=== PATIENT | female | born 1945 | race Caucasian/White ===

== ENCOUNTER 2022-02-19 08:47 | Observation (INO) ==
[2022-02-19] MEDS ORDERED: SODIUM CHLORIDE 0.9% 1000ML 1,000 ML IV ONE ×2 (08:57→16:17)
--- NOTE | 2022-02-19 09:36 | Emergency Department Note ---
Impression & Plan LGI bleed, Hypertension, Anemia ED Provider Note NAME: DEVIN HURST AGE: 76 SEX: F ARRIVES VIA: Walk-In INFORMANT: Patient ED PROVIDER(S): Archie Campos MD CHIEF COMPLAINT: Blood per rectum PLAN: Disposition: Admit MEDICAL DECISION MAKING: The patient is a pleasant 76-year-old woman with a past medical history of arthritis who presents to the emergency department for evaluation of acute onset red blood per rectum which she reports has been mostly blood and clots and minimal stool began this morning with several episodes in most recent episode occurred recently in the emergency department on arrival. She had any prior history of similar episodes. She denies any blood thinner use. She does take a baby aspirin daily. She reports she recently started taking Aleve for hip pain that occurred after lifting 40 pounds of mulch over the weekend. She denies any chest pain, shortness of breath, nausea, vomiting, abdominal pain or chest pain. On arrival patient is no distress, afebrile with BP 160-200s/90-100s in the setting of ongoing GI bleeding and otherwise stable vital signs. She appears clinically dry. Her abdomen is nontender. WBC and platelets within normal limits. H/H10.8/34, without prior values for comparison. Chemistry without metabolic acidosis. BUN/creatinine 20 consistent with patient's clinically dry appearance. Electrolytes LFTs unremarkable. Lipase not elevated. UA without convincing evidence of infection. COVID-19 RNA, NAAT test was negative. CT of the abdomen pelvis was performed and was negative for acute process. Diverticulosis is seen without evidence of diverticulitis. Given the patient's active hematochezia in the setting of anemia reasonable to proceed with admission for further management. Suspect possible diverticular bleed given the persistence of patient's symptoms. Type and screen was performed however given patient is hemodynamically stable no indication for transfusion at this time. Case was discussed with Dr. Janes SALMERON hospitalist, who will evaluate the patient for admission. Triage Nursing notes reviewed and agree them. Prior medical records reviewed Vital Signs: reviewed and remarkable for no significant abnormalities Differential diagnosis: Diverticulosis, AVM, coagulopathy, colitis, inflammatory bowel disease, malignancy, Jess-Juárez tear, esophagitis, peptic ulcer disease, variceal bleed, gastritis, epistaxis, fissure, hemorrhoids, as well as other pathologies. ER treatment provided: See below. Diagnostics interpreted by me: ECG: NSR, 65 bpm, no ectopy, LVH, Nonspecific TWA, no overt ST elevation or depression. Cardiac Monitoring: An order for continuous cardiac monitoring was placed and demonstrated NSR, 65 bpm, no ectopy. Laboratory studies: See below Imaging studies: See below Consultation(s): Dr. Janes SALMERON hospitalist. HPI: The patient is a pleasant 76-year-old woman with a past medical history of arthritis who presents to the emergency department for evaluation of acute onset red blood per rectum which she reports has been mostly blood and clots and minimal stool began this morning with several episodes in most recent episode occurred recently in the emergency department on arrival. She had any prior history of similar episodes. She denies any blood thinner use. She does take a baby aspirin daily. She reports she recently started taking Aleve for hip pain that occurred after lifting 40 pounds of mulch over the weekend. She denies any chest pain, shortness of breath, nausea, vomiting, abdominal pain or chest pain. ROS: See above HPI for pertinent positives & negatives. A total of 10 systems reviewed and were otherwise negative. VITALS:See Below PHYSICAL EXAMINATION: GENERAL: Awake, alert, well-appearing, in no distress HENT: Normocephalic, atraumatic. Oropharynx with dry mucous membranes and otherwise unremarkable. EYES: Normal conjunctiva. Sclera non-icteric. NECK: Supple. No nuchal rigidity. FROM. No JVD. RESPIRATORY: Clear to auscultation. CARDIAC: Regular rate, normal rhythm. Extremities warm and well perfused. Pulses equal. ABDOMEN: Soft, non-distended. No tenderness to palpation. No rebound or guarding. No masses. RECTAL: Deferred. MUSCULOSKELETAL: Chest examination reveals no tenderness. The back is symmetrical on inspection without obvious abnormality. There is no CVA tenderness to palpation. No joint edema. LOWER EXTREMITIES: Calves are equal size bilaterally and non-tender. No edema. No discoloration. NEURO: Normal sensorium. No sensory or motor deficits noted. SKIN: No rash or jaundice noted. 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 Beliefs That Will Affect Care: None Current Living Situation: Spouse Current Living Situation Comment: Lives a medium size trailor Other Information That Helps Us Care for You: No Feels Safe at Home: Yes Safety Concerns: Feels Safe At This Time Allergies Allergies Allergy/AdvReac Type Severity Reaction Status Date / Time thimerosal Allergy Severe Hives Verified 02/19/22 11:16 Home Meds Home Medications Medication Instructions Recorded Confirmed atenolol 25 mg tablet 25 mg PO BID 02/19/22 02/19/22 cetirizine 10 mg tablet (Zyrtec) 5 mg PO QPM 02/19/22 02/19/22 levothyroxine 50 mcg tablet 50 mcg PO QAM 02/19/22 02/19/22 montelukast 10 mg tablet 10 mg PO QAM 02/19/22 02/19/22 olmesartan 20 mg tablet 20 mg PO QPM 02/19/22 02/19/22 Results & Data (ED) Vital Signs Vital Signs - 24 hr 02/19/22 08:51 02/19/22 09:37 02/19/22 10:00 Temperature 36.1 C L Temperature Source Temporal Artery Scan Pulse Rate 60 55 L Pulse Rate [Apical] 56 L Pulse Rate from SpO2 Sensor Respiratory Rate 18 17 21 Blood Pressure 167/137 H Blood Pressure [Right Arm] 199/87 H Blood Pressure Mean 147 Blood Pressure Mean [Right Arm] 124 Pulse Oximetry 98 95 Oxygen Delivery Method Room Air Room Air Sepsis Recent Fever Within 48 Hours No Sepsis New/Unexplained Change in Mental Status No Sepsis Action Taken by Nursing No Action Required 02/19/22 10:01 02/19/22 11:10 02/19/22 11:30 Temperature Temperature Source Pulse Rate 53 L 57 L Pulse Rate [Apical] 55 L Pulse Rate from SpO2 Sensor 53 L 56 L Respiratory Rate 14 22 17 Blood Pressure 182/76 H Blood Pressure [Right Arm] 210/87 H Blood Pressure Mean 111 Blood Pressure Mean [Right Arm] 128 Pulse Oximetry 94 97 95 Oxygen Delivery Method Room Air Room Air Room Air Sepsis Recent Fever Within 48 Hours Sepsis New/Unexplained Change in Mental Status Sepsis Action Taken by Nursing 02/19/22 11:31 02/19/22 12:09 02/19/22 12:15 Temperature Temperature Source Pulse Rate 58 L Pulse Rate [Apical] Pulse Rate from SpO2 Sensor 59 L 55 L Respiratory Rate 23 Blood Pressure 207/97 H 204/97 H Blood Pressure [Right Arm] Blood Pressure Mean 133 132 Blood Pressure Mean [Right Arm] Pulse Oximetry 93 97 Oxygen Delivery Method Room Air Room Air Sepsis Recent Fever Within 48 Hours Sepsis New/Unexplained Change in Mental Status Sepsis Action Taken by Nursing Laboratory Data Attestation: I reviewed the patient's lab results. Result diagrams: 02/19/22 16:20 02/19/22 16:20 Lab Results 02/19/22 02/19/22 02/19/22 Range/Units 09:35 09:35 09:35 WBC 7.99 (4.8-10.8) K/uL RBC 3.80 L (4.2-5.4) M/uL Hgb 10.8 L (12.0-16.0) g/dL Hct 34.0 L (37-47) % MCV 89.5 (80-100) fL MCH 28.4 (25-34) pg MCHC 31.8 L (32-36) g/dL RDW Std Deviation 46.4 H (36.4-46.3) fL RDW Coeff of Naveed 14.1 (11.5-14.5) % Plt Count 361 (130-400) K/uL MPV 9.3 (7.4-10.4) fL Immature Gran % (Auto) 0.3 % Neut % (Auto) 71.3 % Lymph % (Auto) 17.1 % [place] % (Auto) 7.5 % Eos % (Auto) 3.3 % Baso % (Auto) 0.5 % Neut # (Auto) 5.70 (1.4-6.5) K/uL Lymph # (Auto) 1.37 (1.2-3.4) K/uL [place] # (Auto) 0.60 H (0.11-0.59) K/uL Eos # (Auto) 0.26 (0-0.5) K/uL Baso # (Auto) 0.04 (0-0.2) K/uL Immature Gran # (Auto) 0.02 (0.00-0.02) K/uL PT 10.7 (9.0-12.0) Seconds INR 1.0 (0.9-1.1) Sodium 133 L (136-145) mmol/L Potassium 4.3 (3.5-5.1) mmol/L Chloride 100 (98-107) mmol/L Carbon Dioxide 27 (21-32) mmol/L Anion Gap 6 (3-11) BUN 19 (6-23) mg/dl Creatinine 0.87 (0.6-1.2) mg/dl Est Cr Clr Drug Dosing 63.9 ml/min Est GFR ( Amer) 76.1 ml/min Est GFR (Non-Af Amer) 65.6 ml/min BUN/Creatinine Ratio 21.8 H (10-20) Glucose 92 (70-99(Fasting)) mg/dl Calcium 9.1 (8.5-10.1) mg/dl Total Bilirubin 0.4 (0.2-1.0) mg/dl AST 16 (13-39) U/L ALT 15 (7-52) U/L Alkaline Phosphatase 100 (34-104) U/L Total Protein 6.8 (6.0-8.3) gm/dl Albumin 3.7 (3.4-5.0) gm/dl Globulin 3.1 (2.5-4.0) gm/dl Albumin/Globulin Ratio 1.2 (0.9-2) Lipase 20 (11-82) U/L Urine Color Urine Appearance (Clear) Urine pH (4.5-7.5) Ur Specific [place] (1.000-1.030) Urine Protein (Negative) Urine Glucose (UA) (Negative) Urine Ketones (Negative) Urine Blood (Negative) Urine Nitrite (Negative) Urine Bilirubin (Negative) Urine Urobilinogen (Negative) Ur Leukocyte Esterase (Negative) Urine WBC (Auto) (0-5) /hpf Urine RBC (Auto) (0-4) /hpf U Hyaline Cast (Auto) (0-5) /lpf U Epithel Cells (Auto) (0-5) /lpf Urine Bacteria (Auto) (Negative) SARS-CoV-2, RNA, NAAT (NEGATIVE) Blood Type Antibody Screen 02/19/22 02/19/22 02/19/22 Range/Units 09:41 09:51 10:27 WBC (4.8-10.8) K/uL RBC (4.2-5.4) M/uL Hgb (12.0-16.0) g/dL Hct (37-47) % MCV (80-100) fL MCH (25-34) pg MCHC (32-36) g/dL RDW Std Deviation (36.4-46.3) fL RDW Coeff of Naveed (11.5-14.5) % Plt Count (130-400) K/uL MPV (7.4-10.4) fL Immature Gran % (Auto) % Neut % (Auto) % Lymph % (Auto) % [place] % (Auto) % Eos % (Auto) % Baso % (Auto) % Neut # (Auto) (1.4-6.5) K/uL Lymph # (Auto) (1.2-3.4) K/uL [place] # (Auto) (0.11-0.59) K/uL Eos # (Auto) (0-0.5) K/uL Baso # (Auto) (0-0.2) K/uL Immature Gran # (Auto) (0.00-0.02) K/uL PT (9.0-12.0) Seconds INR (0.9-1.1) Sodium (136-145) mmol/L Potassium (3.5-5.1) mmol/L Chloride (98-107) mmol/L Carbon Dioxide (21-32) mmol/L Anion Gap (3-11) BUN (6-23) mg/dl Creatinine (0.6-1.2) mg/dl Est Cr Clr Drug Dosing ml/min Est GFR ( Amer) ml/min Est GFR (Non-Af Amer) ml/min BUN/Creatinine Ratio (10-20) Glucose (70-99(Fasting)) mg/dl Calcium (8.5-10.1) mg/dl Total Bilirubin (0.2-1.0) mg/dl AST (13-39) U/L ALT (7-52) U/L Alkaline Phosphatase (34-104) U/L Total Protein (6.0-8.3) gm/dl Albumin (3.4-5.0) gm/dl Globulin (2.5-4.0) gm/dl Albumin/Globulin Ratio (0.9-2) Lipase (11-82) U/L Urine Color Yellow Urine Appearance Clear (Clear) Urine pH 7.0 (4.5-7.5) Ur Specific [place] 1.005 (1.000-1.030) Urine Protein Negative (Negative) Urine Glucose (UA) Negative (Negative) Urine Ketones Negative (Negative) Urine Blood 1+ H (Negative) Urine Nitrite Negative (Negative) Urine Bilirubin Negative (Negative) Urine Urobilinogen Negative (Negative) Ur Leukocyte Esterase Negative (Negative) Urine WBC (Auto) 0 (0-5) /hpf Urine RBC (Auto) 0-4 (0-4) /hpf U Hyaline Cast (Auto) 0 (0-5) /lpf U Epithel Cells (Auto) 0-5 (0-5) /lpf Urine Bacteria (Auto) Negative (Negative) SARS-CoV-2, RNA, NAAT NEGATIVE (NEGATIVE) Blood Type O Positive Antibody Screen NEGATIVE Administered Medications Atenolol (Atenolol 25 Mg Tablet) 25 mg PO BID GREYSON Stop: 03/21/22 20:59 Last Admin: 02/19/22 19:51 Dose: 25 mg Documented by: [id number] Cetirizine HCl (Cetirizine Hcl 10 Mg Tablet) 5 mg PO QPM GREYSON Stop: 03/21/22 20:59 Last Admin: 02/19/22 19:52 Dose: 5 mg Documented by: [id number] Sodium Chloride (Nss 1000ml) 1,000 mls @ 80 mls/hr IV .[id number] ONE Stop: 02/20/22 04:46 Last Admin: 02/19/22 17:26 Dose: 80 mls/hr Documented by: [id number] Olmesartan (Olmesartan Medoxomil 20 Mg Tab) 20 mg PO QPM GREYSON Stop: 03/21/22 20:59 Last Admin: 02/19/22 19:53 Dose: 20 mg Documented by: [id number] Discontinued Medications Clonidine HCl (Clonidine Hcl 0.1 Mg Tab) 0.1 mg PO NOW ONE Stop: 02/19/22 15:15 Last Admin: 02/19/22 15:45 Dose: Not Given Documented by: [id number] Hydralazine HCl (Hydralazine Hcl 20 Mg/Ml Vial) 10 mg IV NOW STA Stop: 02/19/22 12:29 Last Admin: 02/19/22 12:42 Dose: 10 mg Documented by: [id number] Sodium Chloride (Nss 1000ml) 1,000 mls @ 999 mls/hr IV .[id number] ONE Stop: 02/19/22 09:57 Last Infusion: 02/19/22 12:16 Dose: 0 mls/hr Documented by: [id number] Admin: 02/19/22 09:37 Dose: 999 mls/hr Documented by: [id number] Ioversol (Optiray 320 100ml) 94 ml IV ONCE ONE Stop: 02/19/22 10:37 Last Admin: 02/19/22 10:37 Dose: 94 ml Documented by: [id number] Imaging Data Radiologist's Impression: Abdomen/Pelvis CT 02/19/22 09:30 CT abd pelvis IV con only CLINICAL HISTORY: hematochezia COMPARISON STUDY: No previous studies for comparison. CT DOSE: 1369.40 mGy.cm TECHNIQUE: Standard CT of the Abdomen and Pelvis was performed with IV contrast. A dose lowering technique was utilized adhering to the principles of ALARA. Contrast Volume: Optiray 320, 94 ml. The patient did not receive oral contrast. FINDINGS: Lung base: The lung bases are clear. Abdominal cavity: There is no evidence for abdominal mass, adenopathy or ascites. Liver: There is homogeneous attenuation of the liver parenchyma. There is no evidence for enhancing mass lesion. There is a sharply defined hepatic cysts. Spleen: There is homogeneous attenuation of the splenic parenchyma. There is no enhancing mass lesion. Pancreas: There is homogeneous attenuation of the pancreatic parenchyma. There is no evidence for mass lesion or peripancreatic fluid collection. Gall Bladder: The gallbladder is well distended with no evidence for intraluminal calculi, wall thickening or pericholecystic edema. Adrenal glands: The adrenal glands are normal in size and attenuation. There is no evidence for enhancing mass lesion. Kidneys: There is homogeneous attenuation of the renal parenchyma bilaterally. There is no evidence for renal calculus or hydronephrosis. There is no evidence for enhancing mass. Bowel: There is a small hiatal hernia. The bowel loops are normally placed within the abdomen and pelvis without evidence for dilatation or obstruction. There is no evidence for mass lesion. There is sigmoid diverticulosis without evidence for diverticulitis. There are no inflammatory changes present. There is no evidence for free air. Bladder: The bladder is within normal limits with no evidence for focal mass, calculus or diverticulum. There is mild diffuse thickening of bladder wall characteristic of bladder outlet obstruction. : There is no evidence for pelvic mass or adenopathy. There is no evidence for pelvic ascites. The prostate is mildly to moderately enlarged. Vasculature: There is no evidence for aneurysmal dilatation of the abdominal aorta. Atherosclerotic calcifications present. Osseous structures: There is no acute osseous pathology. Degenerative changes are seen within the spine. IMPRESSION: 1. No acute intra-abdominal or pelvic abnormality. 2. Diverticulosis without evidence for diverticulitis. 3. Small hiatal hernia. 4. Additional nonacute findings are delineated above. ACT 112: Negative or not required by law. Electronically signed by: Hunter Santamaria M.D. 02/19/2022 11:29 AM Discharge Plan Visit Data Chief Complaint: GI Bleed Stated Complaint: BLOOD CLOTS IN STOOL ED Provider: Archie Campos Discharge Problem: LGI bleed, Hypertension, Anemia Patient Disposition: Admitted As Inpatient Discharge Instructions Interventions: ED Discharge Assessment Last Done: 02/19/22 13:42 Discharge Problem: Hypertension Qualifiers: Hypertension type: unspecified Qualified Code(s): I10 - Essential (primary) hypertension Anemia Qualifiers: Anemia type: unspecified type Qualified Code(s): D64.9 - Anemia, unspecified
[2022-02-19 09:57] LABS: Basophils # (auto) 0.04 K/uL (0-0.2); Basophils % (auto) 0.5 %; Eosinophils # (auto) 0.26 K/uL (0-0.5); Eosinophils % (auto) 3.3 %; Hemoglobin 10.8 g/dL (12.0-16.0); Immature Granulocytes # (auto) 0.02 K/uL (0.00-0.02); Immature Granulocytes % (auto) 0.3 %; Lymphocytes # (auto) 1.37 K/uL (1.2-3.4); Lymphocytes % (auto) 17.1 %; Mean Corpuscular Hemoglobin 28.4 pg (25-34); Mean Corpuscular Hgb Conc 31.8 g/dL (32-36); Mean Corpuscular Volume 89.5 fL (80-100); Mean Platelet Volume 9.3 fL (7.4-10.4); Monocytes % (auto) 7.5 %; Neutrophils % (auto) 71.3 %; Platelet Count 361 K/uL (130-400); RDW Coefficient of Variation 14.1 % (11.5-14.5); RDW Standard Deviation 46.4 fL (36.4-46.3); White Blood Count 7.99 K/uL (4.8-10.8)
[2022-02-19 10:07] LABS: Prothrombin Time 10.7 Seconds (9.0-12.0)
[2022-02-19 10:11] LABS: Albumin Globulin Ratio 1.2 (0.9-2); Albumin Level 3.7 gm/dl (3.4-5.0); BUN Creatinine Ratio 21.8 (10-20); Bilirubin,Total 0.4 mg/dl (0.2-1.0); Calcium 9.1 mg/dl (8.5-10.1); Creatinine Clr Calc Pharmacy 63.9 ml/min; Est GFR (African American) 76.1 ml/min; Est GFR (Non-African American) 65.6 ml/min; Globulin 3.1 gm/dl (2.5-4.0); Potassium 4.3 mmol/L (3.5-5.1); Total Protein 6.8 gm/dl (6.0-8.3)
[2022-02-19] MEDS ORDERED: OPTIRAY 320 100ml IV ONE (10:36)
[2022-02-19 10:43] LABS: Appearance Urine Clear (Clear); Bacteria Urine Automated Negative (Negative); Bilirubin Urine Negative (Negative); Blood Urine 1+ (Negative); Cast Urine Automated 0 /lpf (0-5); Color Urine Yellow; Epithelial Cell Urine Auto 0-5 /lpf (0-5); Glucose Urine UA Negative (Negative); Ketones Urine Negative (Negative); Leukocyte Esterase Urine Negative (Negative); Nitrite Urine Negative (Negative); Protein Urine Negative (Negative); RBC Urine Automated 0-4 /hpf (0-4); Specific Gravity Urine 1.005 (1.000-1.030); Urobilinogen Urine Negative (Negative); WBC Urine Automated 0 /hpf (0-5)
--- NOTE | 2022-02-19 11:32 | CT Scan Report ---
CT abd pelvis IV con only CLINICAL HISTORY: hematochezia COMPARISON STUDY: No previous studies for comparison. CT DOSE: 1369.40 mGy.cm TECHNIQUE: Standard CT of the Abdomen and Pelvis was performed with IV contrast. A dose lowering amanda hnique was utilized adhering to the principles of ALARA. Contrast Volume: Optiray 320, 94 ml. The patient did not receive oral contrast. FINDINGS: Lung base: The lung bases are clear. Abdominal cavity: There is no evidence for abdominal mass, adenopathy or ascites. Liver: There is homogeneous attenuation of the liver parenchyma. There is no evidence for enhancing m ass lesion. There is a sharply defined hepatic cysts. Spleen: There is homogeneous attenuation of the splenic parenchyma. There is no enhancing mass lesion . Pancreas: There is homogeneous attenuation of the pancreatic parenchyma. There is no evidence for mas s lesion or peripancreatic fluid collection. Gall Bladder: The gallbladder is well distended with no evidence for intraluminal calculi, wall thick ening or pericholecystic edema. Adrenal glands: The adrenal glands are normal in size and attenuation. There is no evidence for enhan cing mass lesion. Kidneys: There is homogeneous attenuation of the renal parenchyma bilaterally. There is no evidence f or renal calculus or hydronephrosis. There is no evidence for enhancing mass. Bowel: There is a small hiatal hernia. The bowel loops are normally placed within the abdomen and pel vis without evidence for dilatation or obstruction. There is no evidence for mass lesion. There is si gmoid diverticulosis without evidence for diverticulitis. There are no inflammatory changes present. There is no evidence for free air. Bladder: The bladder is within normal limits with no evidence for focal mass, calculus or diverticulu m. There is mild diffuse thickening of bladder wall characteristic of bladder outlet obstruction. : There is no evidence for pelvic mass or adenopathy. There is no evidence for pelvic ascites. The prostate is mildly to moderately enlarged. Vasculature: There is no evidence for aneurysmal dilatation of the abdominal aorta. Atherosclerotic c alcifications present. Osseous structures: There is no acute osseous pathology. Degenerative changes are seen within the spi ne. IMPRESSION: 1. No acute intra-abdominal or pelvic abnormality. 2. Diverticulosis without evidence for diverticulitis. 3. Small hiatal hernia. 4. Additional nonacute findings are delineated above. ACT 112: Negative or not required by law. Electronically signed by: Hunter Santamaria M.D. 02/19/2022 11:29 AM
--- NOTE | 2022-02-19 11:55 | History & Physical Report ---
Date of Service February 19, 2022 Assessment & Plan (1) LGI bleed: Plan: - Suspected, given sebas red blood per rectum with clots since this morning. With diverticulosis being see on CT, suspect this is the cause. - Hgb 10.8 on admission, trend Q8h. No indication for transfusion at this time. - Will consult GI for additional recommendations. - Clear liquid diet for now. (2) Hypertension: Plan: - Continue atenolol 25 mg twice daily, losartan 20 mg at night. - Patient is hypertensive in ED, states she has not had her morning, will give milligrams IV hydralazine now, start of morning dose of atenolol given her low HR in mid 50s. - Continue to monitor. (3) Hypothyroidism: Plan: - Continue levothyroxine 50 mcg daily. (4) Allergies: Plan: - Continue Zyrtec, Singulair. Plan: - Obs on med/tele. - SCDs for DVT ppx. - Full Code. History of Present Illness Chief Complaint: bloody BMs since this AM Primary Care Provider: Serjio Ganesh Gene Thompson is a 76 y/o female with PMH of hypertension, hypothyroidism, and allergies who presents today with bloody BMs since this AM. She woke up with a strong urge to have a BM and had one episode of nonbloody diarrhea. Shortly after, she had another uge but this time had diarrhea with a moderate amount of sebas red blood with multiple clots. She has had several more episodes of this since it started, one occurring here in our ED. She is beginning to feel lightheaded and short of breath with ambulation, otherwise without any complaints, no abdominal pain/nausea/vomiting, dark tarry stools, syncopal episodes. Has been taking Aleve once a day over the past 2 to 3 days due to some back pain she has had since lifting a heavy bag of mulch a few days ago, otherwise denies frequent or chronic use of NSAIDs. Had a colonoscopy done 7 years ago, when a precancerous polyp was removed, however had most recent colonoscopy 2 years ago without any concerning findings. No history of former GI bleeds or cancer. In ED, and is quite hypertensive, otherwise vital signs within normal and stabl e, labs significant for hemoglobin 10.8 (no previous labs for reference), sodium 133, otherwise unremarkable. CT A/P showed diverticulosis without diverticulitis, small hiatal hernia, otherwise no acute findings. Patient received 1L NS bolus in ED, hospitalist group was consulted for further evaluation and admission. Allergies Allergy/AdvReac Type Severity Reaction Status Date / Time thimerosal Allergy Severe Hives Verified 02/19/22 11:16 Home Medications Medication Instructions Recorded Confirmed Type atenolol 25 mg tablet 25 mg PO BID 02/19/22 02/19/22 History cetirizine 10 mg tablet (Zyrtec) 5 mg PO QPM 02/19/22 02/19/22 History levothyroxine 50 mcg tablet 50 mcg PO QAM 02/19/22 02/19/22 History montelukast 10 mg tablet 10 mg PO QAM 02/19/22 02/19/22 History olmesartan 20 mg tablet 20 mg PO QPM 02/19/22 02/19/22 History Past Med/Surg History Medical History (Updated 02/19/22 @ 12:20 by Bri Tripathi PA-C) Allergies Hypertension Hypothyroidism Family History Other Family history non-contributory Social History Smoking Status: Never smoker Second Hand Exposure: No; Do You Dip or Chew Tobacco: No; Hx Alcohol Use: No Hx Substance Use: No Preferred Language: Colombian Communication Ability: Effective 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 Beliefs That Will Affect Care: None Current Living Situation: Spouse Current Living Situation Comment: Lives a medium size trailor Other Information That Helps Us Care for You: No Feels Safe at Home: Yes Safety Concerns: Feels Safe At This Time Review of Systems Review of Systems: Constitutional: lightheaded/dizzy with ambulation since this AM; No fever/chills, weakness, fatigue, myalgias, anorexia, night sweats Eyes: No diplopia, no worsening or blurred vision ENT: normal hearing, no trouble swallowing Respiratory: MULLEN since this AM; No cough, sputum, dyspnea at rest Cardiovascular: No chest pain, tightness or palpitations Abdomen: No pain, nausea, vomiting, diarrhea with bright red blood, clots : Denies dysuria, hematuria, increased urgency/frequency, urinary retention Musculoskeletal: No joint pain, calf pain, swelling Neurologic: No weakness, numbness/tingling, or balance problems Psychiatric: No anxiety or depression Skin: No rash or itch Physical Exam Physical Exam: General: awake, alert, no apparent distress, with pallor Head: Normocephalic, atraumatic ENT: PERRL, EOMI, no pharyngeal exudate, mucous membranes moist Chest: Clear to auscultation, on room air, no adventitious breath sounds Cardiac: Regular rate and rhythm, no murmur, no JVD, normal peripheral pulses, good capillary refill Abdominal: NABS x 4 quadrants, soft, nontender to palpation, no rebound, guarding or tenderness Extremities: Normal inspection, no peripheral edema or erythema, calfs nontender to palpation Psych: Normal mood and affect Neuro: AAO x 3, strength intact bilaterally and rated 5/5, no motor deficits, speech is clear, no peripheral sensory deficits Skin: no rash or erythema Results & Data Results & Data ([facility]) Vital Signs (Past 12 Hours) Vital Signs Temp Pulse Pulse Resp BP BP Pulse Ox 02/19/22 11:31 58 L 23 207/97 H 93 02/19/22 11:30 57 L 17 95 02/19/22 11:10 55 L 22 210/87 H 97 02/19/22 10:01 53 L 14 182/76 H 94 02/19/22 10:00 55 L 21 02/19/22 09:37 56 L 17 199/87 H 95 02/19/22 08:51 36.1 C L 60 18 167/137 H 98 Laboratory Results Abnormal lab results 02/19/22 02/19/22 02/19/22 Range/Units 09:35 09:35 10:27 RBC 3.80 L (4.2-5.4) M/uL Hgb 10.8 L (12.0-16.0) g/dL Hct 34.0 L (37-47) % MCHC 31.8 L (32-36) g/dL RDW Std Deviation 46.4 H (36.4-46.3) fL [place] # (Auto) 0.60 H (0.11-0.59) K/uL Sodium 133 L (136-145) mmol/L BUN/Creatinine Ratio 21.8 H (10-20) Urine Blood 1+ H (Negative) Diagnostic Findings Abdomen/Pelvis CT 02/19/22 09:30 CT abd pelvis IV con only CLINICAL HISTORY: hematochezia COMPARISON STUDY: No previous studies for comparison. CT DOSE: 1369.40 mGy.cm TECHNIQUE: Standard CT of the Abdomen and Pelvis was performed with IV contrast. A dose lowering technique was utilized adhering to the principles of ALARA. Contrast Volume: Optiray 320, 94 ml. The patient did not receive oral contrast. FINDINGS: Lung base: The lung bases are clear. Abdominal cavity: There is no evidence for abdominal mass, adenopathy or ascites. Liver: There is homogeneous attenuation of the liver parenchyma. There is no evidence for enhancing mass lesion. There is a sharply defined hepatic cysts. Spleen: There is homogeneous attenuation of the splenic parenchyma. There is no enhancing mass lesion. Pancreas: There is homogeneous attenuation of the pancreatic parenchyma. There is no evidence for mass lesion or peripancreatic fluid collection. Gall Bladder: The gallbladder is well distended with no evidence for intraluminal calculi, wall thickening or pericholecystic edema. Adrenal glands: The adrenal glands are normal in size and attenuation. There is no evidence for enhancing mass lesion. Kidneys: There is homogeneous attenuation of the renal parenchyma bilaterally. There is no evidence for renal calculus or hydronephrosis. There is no evidence for enhancing mass. Bowel: There is a small hiatal hernia. The bowel loops are normally placed within the abdomen and pelvis without evidence for dilatation or obstruction. There is no evidence for mass lesion. There is sigmoid diverticulosis without evidence for diverticulitis. There are no inflammatory changes present. There is no evidence for free air. Bladder: The bladder is within normal limits with no evidence for focal mass, calculus or diverticulum. There is mild diffuse thickening of bladder wall characteristic of bladder outlet obstruction. : There is no evidence for pelvic mass or adenopathy. There is no evidence for pelvic ascites. The prostate is mildly to moderately enlarged. Vasculature: There is no evidence for aneurysmal dilatation of the abdominal aorta. Atherosclerotic calcifications present. Osseous structures: There is no acute osseous pathology. Degenerative changes are seen within the spine. IMPRESSION: 1. No acute intra-abdominal or pelvic abnormality. 2. Diverticulosis without evidence for diverticulitis. 3. Small hiatal hernia. 4. Additional nonacute findings are delineated above. ACT 112: Negative or not required by law. Electronically signed by: Hunter Santamaria M.D. 02/19/2022 11:29 AM Code Status & VTE Plan Code Status Full Code. Supervising Physician Co-Signing Physician Notes Patient seen and examined the emergency room with the NATAN. Agree with her note above. Patient was having multiple bowel movements that were bright red along with multiple clots. She was having some lightheadedness and her blood pressure was elevated at the time of evaluation. She denied any abdominal pain, nausea, vomiting, or other GI issues. Patient's blood pressure was elevated emergency room. We did give her single dose of hydralazine 10 mg x 1. Patient had a significant drop in her blood pressure. Fluids were started and blood pressure are recovered and she once again became hypertensive. At approximately 4:15 PM required to see the patient again after arrival to the hospital floor. She ambulated with assistance to the bathroom, had a bloody bowel movement and then had a very brief episode of syncope. Previous labs were checked, patient did have 1 g drop in hemoglobin. Vitals were stable by the time we arrived and the patient was awake and alert and once again communicating at her baseline. I did ask for repeat CBC, BMP, troponin, EKG. Bedside commode. Patient was told about ambulating to the bathroom on her own is to call for help whenever she wanted to get out of bed. I did also ask for slow IV fluids to be started at with normal saline at 80 cc an hour. PG Care Time/CCT Total # of Minutes Spent Total Time Spent with Patient: Total time spent is greater than 50% in coordination of care (as documented) at patient's floor/unit and/or counseling patient: Coding Level of Care Code INT OBSERVATION CARE 70M LVL 3 Diagnoses Allergies T78.40XA Hypothyroidism E03.9 Hypertension I10 LGI bleed K92.2
[2022-02-19] MEDS ORDERED: hydrALAZINE HCL 20 MG/ML VIAL IV STA (12:28)
[2022-02-19] MEDS ORDERED: ACETAMINOPHEN 325 MG TAB PO PRN (14:10)
[2022-02-19] MEDS ORDERED: ONDANSETRON INJ 2 MG/ML 2 ML VIAL IV PRN (14:10)
[2022-02-19 14:42] LABS: Hematocrit (blood only) 29.9 % (37-47); Hemoglobin 9.4 g/dL (12.0-16.0)
[2022-02-19] MEDS ORDERED: cloNIDine HCL 0.1 MG TAB PO ONE (15:14)
[2022-02-19 16:33] LABS: Basophils # (auto) 0.03 K/uL (0-0.2); Basophils % (auto) 0.3 %; Eosinophils # (auto) 0.12 K/uL (0-0.5); Eosinophils % (auto) 1.1 %; Hematocrit (blood only) 29.4 % (37-47); Hemoglobin 9.4 g/dL (12.0-16.0); Immature Granulocytes # (auto) 0.03 K/uL (0.00-0.02); Immature Granulocytes % (auto) 0.3 %; Lymphocytes # (auto) 1.15 K/uL (1.2-3.4); Lymphocytes % (auto) 10.9 %; Mean Corpuscular Hemoglobin 28.6 pg (25-34); Mean Corpuscular Volume 89.4 fL (80-100); Mean Platelet Volume 9.1 fL (7.4-10.4); Monocytes # (auto) 0.36 K/uL (0.11-0.59); Monocytes % (auto) 3.4 %; Neutrophils # (auto) 8.84 K/uL (1.4-6.5); Platelet Count 315 K/uL (130-400); RDW Coefficient of Variation 14.2 % (11.5-14.5); RDW Standard Deviation 46.5 fL (36.4-46.3); Red Blood Count 3.29 M/uL (4.2-5.4); White Blood Count 10.53 K/uL (4.8-10.8)
[2022-02-19 16:56] LABS: BUN Creatinine Ratio 24.7 (10-20); Calcium 8.1 mg/dl (8.5-10.1); Creatinine Clr Calc Pharmacy 76.6 ml/min; Est GFR (Non-African American) 81.1 ml/min
[2022-02-19 16:58] LABS: Troponin I High Sensitivity 14.8 pg/ml (0-14)
--- NOTE | 2022-02-19 17:31 | Electrocardiogram Report ---
Test Reason : Blood Pressure : / mmHG Vent. Rate : 063 BPM Atrial Rate : 063 BPM P-R Int : 168 ms QRS Dur : 086 ms QT Int : 516 ms P-R-T Axes : 027 009 066 degrees QTc Int : 528 ms Normal sinus rhythm Minimal voltage criteria for LVH, may be normal variant Nonspecific T wave abnormality Prolonged QT Abnormal ECG No previous ECGs available Confirmed by Varinder Osuna ([id number]) on 02/19/2022 5:30:37 PM Referred By: REFERRED SELF Confirmed By:Darwin Osuna
[2022-02-19] MEDS: ATENOLOL 25 MG TABLET PO SCH (19:51)
[2022-02-19] MEDS: CETIRIZINE HCL 10 MG TABLET PO SCH (19:52)
[2022-02-19] MEDS: OLMESARTAN MEDOXOMIL 20 MG TAB PO SCH (19:53)
[2022-02-19 22:24] LABS: Hematocrit (blood only) 25.6 % (37-47); Hemoglobin 8.2 g/dL (12.0-16.0)
[2022-02-19] MEDS: PANTOprazole 40 MG in SYRINGE 0 ML IV SCH (23:01)
[2022-02-20] MEDS: LEVOTHYROXINE SODIUM 50 MCG TABLET PO SCH (05:21)
[2022-02-20 06:11] LABS: Basophils # (auto) 0.02 K/uL (0-0.2); Basophils % (auto) 0.2 %; Eosinophils # (auto) 0.17 K/uL (0-0.5); Eosinophils % (auto) 1.9 %; Hematocrit (blood only) 23.1 % (37-47); Hemoglobin 7.4 g/dL (12.0-16.0); Immature Granulocytes # (auto) 0.02 K/uL (0.00-0.02); Immature Granulocytes % (auto) 0.2 %; Lymphocytes # (auto) 1.65 K/uL (1.2-3.4); Lymphocytes % (auto) 18.8 %; Mean Corpuscular Volume 90.6 fL (80-100); Monocytes % (auto) 6.8 %; Neutrophils # (auto) 6.33 K/uL (1.4-6.5); Neutrophils % (auto) 72.1 %; Platelet Count 298 K/uL (130-400); RDW Coefficient of Variation 14.3 % (11.5-14.5); RDW Standard Deviation 47.8 fL (36.4-46.3); Red Blood Count 2.55 M/uL (4.2-5.4); White Blood Count 8.79 K/uL (4.8-10.8)
[2022-02-20 06:31] LABS: Hypochromasia Present
[2022-02-20 06:43] LABS: BUN Creatinine Ratio 22.8 (10-20); Calcium 7.9 mg/dl (8.5-10.1); Creatinine Clr Calc Pharmacy 70.8 ml/min; Est GFR (African American) 85.5 ml/min; Est GFR (Non-African American) 73.7 ml/min; Magnesium 1.8 mg/dl (1.7-2.4); Potassium 3.9 mmol/L (3.5-5.1)
[2022-02-20] MEDS: PANTOprazole 40 MG in SYRINGE 0 ML IV SCH ×2 (08:21→19:57)
[2022-02-20] MEDS: MONTELUKAST SODIUM 10 MG TABLET PO SCH (08:22)
[2022-02-20] MEDS: ATENOLOL 25 MG TABLET PO SCH ×2 (08:22→19:54)
--- NOTE | 2022-02-20 11:40 | Electrocardiogram Report ---
Test Reason : Blood Pressure : / mmHG Vent. Rate : 065 BPM Atrial Rate : 065 BPM P-R Int : 166 ms QRS Dur : 086 ms QT Int : 482 ms P-R-T Axes : 034 -03 033 degrees QTc Int : 501 ms Normal sinus rhythm Minimal voltage criteria for LVH, may be normal variant Nonspecific T wave abnormality Prolonged QT Abnormal ECG When compared with ECG of 19-FEB-2022 13:13, Nonspecific T wave abnormality, improved in Lateral leads Confirmed by Varinder Osuna ([id number]) on 02/20/2022 11:40:27 AM Referred By: REFERRED SELF Confirmed By:Darwin Osuna
--- NOTE | 2022-02-20 12:27 | Gastrointestinal Consultation ---
Date of Consultation February 20, 2022 Assessment & Plan (1) Anemia: Blood in stool: Patient reports history of bright red blood and clots in stool with bowel movement began denies any blood in her stool since 10 PM last night. in the morning. She does report a several day history of Aleve prior to this episode. She also has a history of daily 81 mg aspirin. Currently experiencing no symptoms. Tolerating clear liquids. Rectal bleeding is likely lower GI related. She did have a diverticulosis noted on imaging without diverticulitis. Due to history of aspirin and recent use of NSAIDs, plan will likely be EGD tomorrow morning. Would continue clear liquids at this time, supportive care including IV fluids and IV Protonix. Continue to closely monitor bowel movements for blood and transfuse as needed. Case reviewed with Dr. Saleh. Please refer to supervising physician addendum for further recommendations. I have spent 25 minutes of discrete time performing the activities of this visit which include but are not limited to review of the medical record, obtaining a history, physical exam, and entering information in the electronic record. (2) Blood in stool: Supervising Physician Co-Signing Physician Notes I have seen and examined the patient. I agree with note above by MARINE Narayanan except as noted below. HPI Pt with bright red bleeding all day yesterday and into the evening. Last BM last evening. Syncope in the hospital and drop in H and H from 10.[address] scan diverticulosis. Hx of colo 2 years ago diverticulosis Son and daugther in law with patient for H and P. PE Abdomen pos bs, soft, no guardign nor rebound A/P GI bleeding---LGI bleeding vs brisk UGI bleeding. Plan EGD and colonscopy tomorrow. Procedures and risks explained to patient which include but not limi gumaro to medication reaction, bleeding, perforation, aspiration, and missed lesions. anemia--transfuse prn. As the supervising physician, I , Bam Saleh MD have spent 22 minutes of discrete time performing the activities of this visit which include but not limited to review of the medical records, obtaining a history, physical exam and entering information in the electronic record. MARINE Narayanan has reported spending 25 minutes of discrete time with the activities of this visit. History of Present Illness Reason for Consultation: GI bleeding Attending Physician: Fabián Lainez MD History of Present Illness The patient is a pleasant 76-year-old female with a past medical history of hypertension, hypothyroidism, allergies he reports that she woke with bright red blood and clots with bowel movement 02/19/2022 in the morning. She was subsequently admitted for further management and the GI service consulted due to bloody stools. On exam/interview today, the patient states that she began having hip pain after lifting mulch in her yard. She states she used Aleve over a 4-day period. She notes that she had some constipation on Sunday. Sunday morning she woke with diarrhea. She states stool was red although she did not think much of it as she had had beets and pickled eggs the day before. She then began experiencing bright red blood with clots with bowel movement. She has not required transfusion while inpatient. Currently tolerating clear liquids. Her last bowel movement that had blood in it was 10 PM yesterday. She reports she has had no blood in her stool since that time. Nursing documentation reviewed and no stools are documented. Denies any abdominal pain. Had some mild nausea initially but denies any nausea or vomiting currently. She also had a syncopal episode while in the hospital yesterday per her report. She states some chills with bowel movement. No unintentional weight loss. She does take an 81 mg aspirin daily. She reports her last colonoscopy was performed 2 years ago at [facility]. She is a lifetime non-smoker. No history of alcohol use. Denies recreational drug use including marijuana. She continues to work. 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 She is with 4 adult children, 11 grandchildren, 6 great-grandchildren. Allergies Allergy/AdvReac Type Severity Reaction Status Date / Time thimerosal Allergy Severe Hives Verified 02/19/22 11:16 Home Medications Medication Instructions Recorded Confirmed Type atenolol 25 mg tablet 25 mg PO BID 02/19/22 02/19/22 History cetirizine 10 mg tablet (Zyrtec) 5 mg PO QPM 02/19/22 02/19/22 History levothyroxine 50 mcg tablet 50 mcg PO QAM 02/19/22 02/19/22 History montelukast 10 mg tablet 10 mg PO QAM 02/19/22 02/19/22 History olmesartan 20 mg tablet 20 mg PO QPM 02/19/22 02/19/22 History Patient History Medical History (Updated 02/20/22 @ 12:30 by MARINE Schafer) Allergies Hypertension Hypothyroidism Family History Other Family history non-contributory Social History Smoking Status: Never smoker Second Hand Exposure: No; Do You Dip or Chew Tobacco: No; Hx Alcohol Use: No Hx Substance Use: No Preferred Language: Lithuanian Communication Ability: Effective Neurodiagnostic Tech Required: No Beliefs That Will Affect Care: None marital status: Current Living Situation: Spouse Current Living Situation Comment: Lives a medium size trailor Other Information That Helps Us Care for You: No Feels Safe at Home: Yes Safety Concerns: Feels Safe At This Time Assistive Devices: None Review of Systems Review of Systems: All systems reviewed & are unremarkable except as noted in Subjective Physical Exam Constitutional: WD/WN, vitals as above Respiratory: normal respiratory effort, lungs clear to auscultation Cardiovascular: Rate/Rhythm: regular rate and regular rhythm Gastrointestinal (Abdomen): normal bowel sounds, soft, nontender, no hepatosplenomegaly Neurologic: PERRL, EOMI, accommodation nl, no face palsy, no dysarthria Psychiatric: A+Ox3, euthymic affect Results & Data ([place]) Vital Signs (Past 12 Hours) Vital Signs Temp Pulse Pulse Resp BP BP Pulse Ox 02/20/22 07:37 63 02/20/22 06:39 36.8 C 67 18 177/95 H 94 02/20/22 02:55 36.5 C 65 20 181/75 H 185/89 H 95 02/20/22 00:59 63 Laboratory Results Laboratory Results - last 24 hr 02/19/22 02/19/22 02/19/22 14:21 16:20 16:20 WBC 10.53 RBC 3.29 L Hgb 9.4 L 9.4 L Hct 29.9 L 29.4 L MCV 89.4 MCH 28.6 MCHC 32.0 RDW Std Deviation 46.5 H RDW Coeff of Naveed 14.2 Plt Count 315 MPV 9.1 Immature Gran % (Auto) 0.3 Neut % (Auto) 84.0 Lymph % (Auto) 10.9 [place] % (Auto) 3.4 Eos % (Auto) 1.1 Baso % (Auto) 0.3 Neut # (Auto) 8.84 H Lymph # (Auto) 1.15 L [place] # (Auto) 0.36 Eos # (Auto) 0.12 Baso # (Auto) 0.03 Immature Gran # (Auto) 0.03 H Hypochromasia Sodium 134 L Potassium 4.0 Chloride 104 Carbon Dioxide 23 Anion Gap 7 BUN 18 Creatinine 0.73 Est Cr Clr Drug Dosing 76.6 Est GFR ( Amer) 94.0 Est GFR (Non-Af Amer) 81.1 BUN/Creatinine Ratio 24.7 H Glucose 132 H POC Glucose Calcium 8.1 L Magnesium Troponin I High Sens 14.8 H 02/19/22 02/19/22 02/20/22 18:40 22:08 05:42 WBC 8.79 RBC 2.55 L Hgb 8.2 L 7.4 L Hct 25.6 L 23.1 L MCV 90.6 MCH 29.0 MCHC 32.0 RDW Std Deviation 47.8 H RDW Coeff of Naveed 14.3 Plt Count 298 MPV 9.0 Immature Gran % (Auto) 0.2 Neut % (Auto) 72.1 Lymph % (Auto) 18.8 [place] % (Auto) 6.8 Eos % (Auto) 1.9 Baso % (Auto) 0.2 Neut # (Auto) 6.33 Lymph # (Auto) 1.65 [place] # (Auto) 0.60 H Eos # (Auto) 0.17 Baso # (Auto) 0.02 Immature Gran # (Auto) 0.02 Hypochromasia Present Sodium Potassium Chloride Carbon Dioxide Anion Gap BUN Creatinine Est Cr Clr Drug Dosing Est GFR ( Amer) Est GFR (Non-Af Amer) BUN/Creatinine Ratio Glucose POC Glucose 155 H Calcium Magnesium Troponin I High Sens 02/20/22 05:42 WBC RBC Hgb Hct MCV MCH MCHC RDW Std Deviation RDW Coeff of Naveed Plt Count MPV Immature Gran % (Auto) Neut % (Auto) Lymph % (Auto) [place] % (Auto) Eos % (Auto) Baso % (Auto) Neut # (Auto) Lymph # (Auto) [place] # (Auto) Eos # (Auto) Baso # (Auto) Immature Gran # (Auto) Hypochromasia Sodium 131 L Potassium 3.9 Chloride 102 Carbon Dioxide 23 Anion Gap 6 BUN 18 Creatinine 0.79 Est Cr Clr Drug Dosing 70.8 Est GFR ( Amer) 85.5 Est GFR (Non-Af Amer) 73.7 BUN/Creatinine Ratio 22.8 H Glucose 90 POC Glucose Calcium 7.9 L Magnesium 1.8 Troponin I High Sens Diagnostic Findings Abdomen/Pelvis CT 02/19/22 09:30 CT abd pelvis IV con only CLINICAL HISTORY: hematochezia COMPARISON STUDY: No previous studies for comparison. CT DOSE: 1369.40 mGy.cm TECHNIQUE: Standard CT of the Abdomen and Pelvis was performed with IV contrast. A dose lowering technique was utilized adhering to the principles of ALARA. Contrast Volume: Optiray 320, 94 ml. The patient did not receive oral contrast. FINDINGS: Lung base: The lung bases are clear. Abdominal cavity: There is no evidence for abdominal mass, adenopathy or ascites. Liver: There is homogeneous attenuation of the liver parenchyma. There is no evidence for enhancing mass lesion. There is a sharply defined hepatic cysts. Spleen: There is homogeneous attenuation of the splenic parenchyma. There is no enhancing mass lesion. Pancreas: There is homogeneous attenuation of the pancreatic parenchyma. There is no evidence for mass lesion or peripancreatic fluid collection. Gall Bladder: The gallbladder is well distended with no evidence for intraluminal calculi, wall thickening or pericholecystic edema. Adrenal glands: The adrenal glands are normal in size and attenuation. There is no evidence for enhancing mass lesion. Kidneys: There is homogeneous attenuation of the renal parenchyma bilaterally. There is no evidence for renal calculus or hydronephrosis. There is no evidence for enhancing mass. Bowel: There is a small hiatal hernia. The bowel loops are normally placed within the abdomen and pelvis without evidence for dilatation or obstruction. T here is no evidence for mass lesion. There is sigmoid diverticulosis without evidence for diverticulitis. There are no inflammatory changes present. There is no evidence for free air. Bladder: The bladder is within normal limits with no evidence for focal mass, calculus or diverticulum. There is mild diffuse thickening of bladder wall characteristic of bladder outlet obstruction. : There is no evidence for pelvic mass or adenopathy. There is no evidence for pelvic ascites. The prostate is mildly to moderately enlarged. Vasculature: There is no evidence for aneurysmal dilatation of the abdominal aorta. Atherosclerotic calcifications present. Osseous structures: There is no acute osseous pathology. Degenerative changes are seen within the spine. IMPRESSION: 1. No acute intra-abdominal or pelvic abnormality. 2. Diverticulosis without evidence for diverticulitis. 3. Small hiatal hernia. 4. Additional nonacute findings are delineated above. ACT 112: Negative or not required by law. Electronically signed by: Hunter Santamaria M.D. 02/19/2022 11:29 AM (1) Anemia Anemia type: unspecified type Qualified Code(s): D64.9 - Anemia, unspecified
--- NOTE | 2022-02-20 13:54 | Hospitalist Progress Note ---
Date of Service February 20, 2022 Assessment & Plan (1) LGI bleed: Plan: Suspected, given sebas red blood per rectum with clots since this morning. With diverticulosis being see on CT, suspect this is the cause. - Hgb 10.8 on admission, trend Q8h. No indication for transfusion at this time. - Will consult GI for additional recommendations - Plan for EGD tomorrow. - Clear liquid diet for now; NPO @ midnight. (2) Hypertension: Plan: BP presently is 170/70. - Continue atenolol 25 mg twice daily, losartan 20 mg at night. (3) Hypothyroidism: Plan: No TSH noted in charts. - Continue levothyroxine 50 mcg daily. (4) Allergies: Plan: - Continue Zyrtec, Singulair. Admission and Anticipated Discharge Date Admission Date: February 19, 2022 Subjective Doing well today. No further BMs since yesterday evening. Reports no fevers/chills, chest pain, shortness of breath, abdominal pain, nausea, or vomiting. Physical Exam Constitutional: WD/WN, vitals as above Eyes: EOM intact bilaterally; no conjunctival abnormality ENMT: external ear and nose normal, oropharynx normal Neck: trachea midline, no thyromegaly normal visual inspection Respiratory: normal respiratory effort, lungs clear to auscultation no respiratory distress Cardiovascular: RRR, no murmur, no edema Gastrointestinal (Abdomen): Inspection/Auscultation: abdomen normal to inspection; abdomen not distended Musculoskeletal: no cyanosis or clubbing, extremities motor strength 5/5 Skin: no rashes, warm and dry Neurologic: moves all extremities and awake Psychiatric: Orientation: alert, oriented to person and cooperative Results & Data Results & Data ([facility]) Vital Signs (Past 12 Hours) Vital Signs Temp Pulse Pulse Pulse Resp BP BP 02/20/22 12:00 36.9 C 60 18 171/71 H 02/20/22 07:37 63 02/20/22 06:39 36.8 C 67 18 177/95 H 02/20/22 02:55 36.5 C 65 20 181/75 H 185/89 H Pulse Ox 02/20/22 12:00 95 02/20/22 07:37 02/20/22 06:39 94 02/20/22 02:55 95 PG Care Time/CCT Total # of Minutes Spent Total Time Spent with Patient: Total time spent is greater than 50% in coordination of care (as documented) at patient's floor/unit and/or counseling patient: Coding Level of Care Code 59658 Subseq Hosp Care Lvl 2 Diagnoses LGI bleed K92.2 Hypertension I10 Hypertension type: unspecified Hypothyroidism E03.9 Allergies T78.40XA (1) Hypertension Hypertension type: unspecified Qualified Code(s): I10 - Essential (primary) hypertension
[2022-02-20] MEDS ORDERED: POLYETHYLENE (MIRALAX) 17 GM PACK PO ONE (15:44)
[2022-02-20 17:44] LABS: Hematocrit (blood only) 24.5 % (37-47); Hemoglobin 7.9 g/dL (12.0-16.0)
[2022-02-20] MEDS: POLYETHYLENE (MIRALAX) 17 GM PACK PO SCH ×2 (18:06→22:43)
[2022-02-20] MEDS: CETIRIZINE HCL 10 MG TABLET PO SCH (19:55)
[2022-02-20] MEDS: OLMESARTAN MEDOXOMIL 20 MG TAB PO SCH (19:56)
[2022-02-21] MEDS: LEVOTHYROXINE SODIUM 50 MCG TABLET PO SCH (05:51)
[2022-02-21 06:59] LABS: Hematocrit (blood only) 23.4 % (37-47); Hemoglobin 7.7 g/dL (12.0-16.0); Mean Corpuscular Hemoglobin 29.7 pg (25-34); Mean Corpuscular Hgb Conc 32.9 g/dL (32-36); Mean Corpuscular Volume 90.3 fL (80-100); Mean Platelet Volume 9.3 fL (7.4-10.4); Platelet Count 322 K/uL (130-400); RDW Coefficient of Variation 14.5 % (11.5-14.5); RDW Standard Deviation 48.2 fL (36.4-46.3); Red Blood Count 2.59 M/uL (4.2-5.4); White Blood Count 7.07 K/uL (4.8-10.8)
[2022-02-21 07:37] LABS: BUN Creatinine Ratio 15.9 (10-20); Calcium 8.1 mg/dl (8.5-10.1); Creatinine Clr Calc Pharmacy 67.3 ml/min; Est GFR (African American) 81.7 ml/min; Est GFR (Non-African American) 70.5 ml/min; Magnesium 1.9 mg/dl (1.7-2.4); Potassium 3.8 mmol/L (3.5-5.1)
[2022-02-21] MEDS ORDERED: IRON SUCROSE 400 MG in SODIUM CHLORIDE 0.9% 250 ML IV STA (07:37)
[2022-02-21] MEDS: ATENOLOL 25 MG TABLET PO SCH (08:06)
[2022-02-21] MEDS: PANTOprazole 40 MG in SYRINGE 0 ML IV SCH (08:06)
[2022-02-21] MEDS: MONTELUKAST SODIUM 10 MG TABLET PO SCH (08:06)
--- NOTE | 2022-02-21 08:10 | Gastroenterology Progress Note ---
Date of Service February 21, 2022 Assessment & Plan (1) Anemia: Plan: Blood in stool: Patient reports history of bright red blood and clots in stool with bowel movement began . She does report a several day history of Aleve prior to this episode. She also has a history of daily 81 mg aspirin. LGI bleeding vs brisk UGI bleeding. Plan EGD and colonoscopy today. Procedures and risks explained to patient which include but not limited to medication reaction, bleeding, perforation, aspiration, and missed lesions. Continue supportive care including IV fluids and IV Protonix. Continue to closely monitor bowel movements for blood and transfuse as needed. Anemia--transfuse prn. Case reviewed with Dr. Saleh. Please refer to supervising physician addendum for further recommendations. I have spent 15 minutes of discrete time performing the activities of this visit which include but are not limited to review of the medical record, obtaining a history, physical exam, and entering information in the electronic record. (2) Blood in stool: Admission and Anticipated Discharge Date Admission Date: February 19, 2022 Supervising Physician Co-Signing Physician Notes I have seen and examined the patient. I agree with note above by MARINE Narayanan except as noted below. HPI Pt states saw blood with prep but last BM clear. PE Abdomen pos bs, soft, no guarding nor rebound A/P GI bleeding--EGD and colonoscopy today. Procedures and risks explained to patient which include but not limited to medication reaction, bleeding, perforation, aspiration, and missed lesions. As the supervising physician, I , Bam Saleh MD have spent 10 minutes of discrete time performing the activities of this visit which include but not limited to review of the medical records, obtaining a history, physical exam and entering information in the electronic record. MARINE Narayanan has reported spending 15 minutes of discrete time with the activities of this visit. Subjective Patient is awake alert and oriented this morning. She states overall she is not feeling bad. She tolerated the colonoscopy prep without difficulty. She states that her lightheadedness is significantly improved this morning. Denies any abdominal pain, nausea, vomiting, fever, chills. Her nurse does report that she continues to have bloody watery output after completing colonoscopy prep stool Review of Systems Review of Systems: All systems reviewed & are unremarkable except as noted in Subjective Physical Exam Gastrointestinal (Abdomen): normal bowel sounds, soft, nontender, no hepatosplenomegaly Results & Data ([facility]) Vital Signs (Past 12 Hours) Vital Signs Temp Pulse Pulse Resp BP BP Pulse Ox 02/21/22 07:40 37.0 C 73 20 148/91 H 96 02/21/22 03:40 36.8 C 72 20 179/80 H 95 02/21/22 01:33 81 02/20/22 23:00 36.6 C 82 20 193/93 H 95 Laboratory Results Laboratory Results - last 24 hr 02/20/22 02/21/22 02/21/22 16:58 06:00 06:00 WBC 7.07 RBC 2.59 L Hgb 7.9 L 7.7 L Hct 24.5 L 23.4 L MCV 90.3 MCH 29.7 MCHC 32.9 RDW Std Deviation 48.2 H RDW Coeff of Naveed 14.5 Plt Count 322 MPV 9.3 Sodium 131 L Potassium 3.8 Chloride 101 Carbon Dioxide 25 Anion Gap 5 BUN 13 Creatinine 0.82 Est Cr Clr Drug Dosing 67.3 Est GFR ( Amer) 81.7 Est GFR (Non-Af Amer) 70.5 BUN/Creatinine Ratio 15.9 Glucose 92 Calcium 8.1 L Magnesium 1.9 (1) Anemia Anemia type: unspecified type Qualified Code(s): D64.9 - Anemia, unspecified
--- NOTE | 2022-02-21 08:42 | Anesthesiology Consultation ---
Date of Service February 21, 2022 Assessment & Plan (1) Encounter for pre-operative examination: Chart Review Chart Review: Acceptable Risk for Surgery, Patient NOT seen in Pre Admission Testing and entry level project coordinator initiated Consults Requested none History Surgery Operation Date: 02/21/22 16:00 Proposed Procedures p Colonoscopy EGD Dr Therese Saleh Height/Weight Height: 5 ft 2.5 in Weight: 100.1 kg Allergies Allergy/AdvReac Type Severity Reaction Status Date / Time thimerosal Allergy Severe Hives Verified 02/19/22 11:16 Medications Home Medications Medication Instructions Recorded Confirmed Last Taken atenolol 25 mg tablet 25 mg PO BID 02/19/22 02/19/22 02/18/22 cetirizine 10 mg tablet (Zyrtec) 5 mg PO QPM 02/19/22 02/19/22 02/17/22 levothyroxine 50 mcg tablet 50 mcg PO QAM 02/19/22 02/19/22 02/19/22 montelukast 10 mg tablet 10 mg PO QAM 02/19/22 02/19/22 02/18/22 olmesartan 20 mg tablet 20 mg PO QPM 02/19/22 02/19/22 02/17/22 Active Medications Generic Name Dose Route Start Last Admin Trade Name Freq PRN Reason Stop Dose Admin Atenolol 25 mg 02/19/22 21:00 02/21/22 08:06 Atenolol 25 Mg Tablet PO 03/21/22 20:59 25 mg BID GREYSON Administration Cetirizine HCl 5 mg 02/19/22 21:00 02/20/22 19:55 Cetirizine Hcl 10 Mg Tablet PO 03/21/22 20:59 5 mg QPM GREYSON Administration Pantoprazole Sodium 40 mg/ 10 mls @ 5 mls/min 02/19/22 21:00 02/21/22 08:06 Syringe IV 03/21/22 20:59 5 mls/min BID GREYSON Administration Iron Sucrose 400 mg/ Sodium 270 mls @ 108 mls/hr 02/21/22 07:37 02/21/22 08:06 Chloride IV 02/21/22 10:06 108 mls/hr NOW STA Administration Levothyroxine Sodium 50 mcg 02/20/22 06:30 02/21/22 05:51 Levothyroxine Sodium 50 Mcg Tablet PO 03/22/22 06:29 50 mcg DAILYBB GREYSON Administration Montelukast Sodium 10 mg 02/20/22 09:00 02/21/22 08:06 Montelukast Sodium 10 Mg Tablet PO 03/22/22 08:59 10 mg QAM GREYSON Administration Olmesartan 20 mg 02/19/22 21:00 02/20/22 19:56 Olmesartan Medoxomil 20 Mg Tab PO 03/21/22 20:59 20 mg QPM GREYSON Administration Past Medical History Medical History (Updated 02/21/22 @ 08:46 by Jaydon Patel MD) Allergies Encounter for pre-operative examination Hypertension Hypothyroidism Past Family History Family History Other Family history non-contributory Social History Smoking Status: Never smoker Do You Dip or Chew Tobacco: No Hx Alcohol Use: No Hx Substance Use: No Physical Exam Vital Signs Last Vital Signs Temp 37.0 C 02/21/22 07:40 Pulse 61 02/21/22 08:23 Resp 20 02/21/22 07:40 BP 148/91 H 02/21/22 07:40 Pulse Ox 96 02/21/22 07:40 Testing Laboratory Results 02/21/22 06:00 02/21/22 06:00 PT 10.7 Seconds (9.0-12.0) 02/19/22 09:35 INR 1.0 (0.9-1.1) 02/19/22 09:35 Urine Color Yellow 02/19/22 10:27 Urine Appearance Clear (Clear) 02/19/22 10:27 Urine pH 7.0 (4.5-7.5) 02/19/22 10:27 Ur Specific [place] 1.005 (1.000-1.030) 02/19/22 10:27 Urine Protein Negative (Negative) 02/19/22 10:27 Urine Glucose (UA) Negative (Negative) 02/19/22 10:27 Urine Ketones Negative (Negative) 02/19/22 10:27 Urine Nitrite Negative (Negative) 02/19/22 10:27 Ur Leukocyte Esterase Negative (Negative) 02/19/22 10:27 Urine WBC (Auto) 0 /hpf (0-5) 02/19/22 10:27 Urine RBC (Auto) 0-4 /hpf (0-4) 02/19/22 10:27 U Hyaline Cast (Auto) 0 /lpf (0-5) 02/19/22 10:27 U Epithel Cells (Auto) 0-5 /lpf (0-5) 02/19/22 10:27 Urine Bacteria (Auto) Negative (Negative) 02/19/22 10:27 Blood Type O Positive 02/19/22 09:41 Antibody Screen NEGATIVE 02/19/22 09:41 Electrocardiogram Date: 02/19/22 Normal sinus rhythm Minimal voltage criteria for LVH, may be normal variant Nonspecific T wave abnormality Prolonged QT Abnormal ECG When compared with ECG of 19-FEB-2022 13:13, Nonspecific T wave abnormality, improved in Lateral leads Confirmed by Varinder Osuna ([id number]) on 02/20/2022 11:40:27 AM Other Testing 02/19/22 CT abdomen and pelvis: IMPRESSION: 1. No acute intra-abdominal or pelvic abnormality. 2. Diverticulosis without evidence for diverticulitis. 3. Small hiatal hernia. 4. Additional nonacute findings are delineated above.
[2022-02-21] MEDS ORDERED: PROPOFOL IV EMULSION 10 MG/ML 20 ML VIAL IV ONE (14:23)
[2022-02-21] MEDS ORDERED: LIDOCAINE 2% 2 ML VIAL/AMP(20MG/ML) INFIL ONE (14:23)
--- NOTE | 2022-02-21 15:11 | Post Operative Brief Note ---
Immediate Post Op Note v1 Date of Surgery February 21, 2022 Pre & Post Diagnosis Operation Date: 02/21/22 16:00 Pre-Op Diagnosis: LGIB Post-Op Diagnosis: Hiatal Hernia and Irregular Z-line; Polyp, Diverticulosis and Hemorrhoids I identified the patient and participated in the time-out.: Yes Procedure Operation Date: 02/21/22 16:00 Actual Procedures p Esophagogastroduodenoscopy - Bam Saleh s Colonoscopy Biopsy Cytology - Bam Saleh Surgeon Bam Saleh Software Deployment Engineer see report Estimated Blood Loss 1 Findings See Below EGD small HH, irregular Z line Colonoscopy left colon diverticulosis, 30 mm AC flat polyp cold biopsy and tattoo. Particulate stool in right colon brown confirming source of bleed was colon but also interferring with possible visulization of small or flat polyps No bleeding at present. Source likely diverticular. Once path back from polyp will need colonoscopy with EMR vs surgery if removal desired by patient. Will sign off.
--- NOTE | 2022-02-21 15:18 | GI REPORT ---
Addendum Number: 1 Addendum Date: 02/22/2022 3:34:05 PM Specimens were collected. Colon polyp was biopsied by cold biopsy forceps. Estimated blood loss minimal. Bam Saleh M.D. Bam Saleh MD 02/22/2022 3:35:12 PM This report has been signed electronically. Addendum Number: 2 Addendum Date: 02/22/2022 3:39:58 PM addendum in error. This was for colonoscopy Paulo Dan MD 02/22/2022 3:40:24 PM This report has been signed electronically. Patient Name: Mary Thompson Procedure Date: 02/21/2022 2:25 PM Date of : 1945 Admit Type: Inpatient Age: 76 Gender: Female Attending MD: Bam Saleh MD Procedure: Upper GI endoscopy Providers: Bam Saleh MD Referring MD: Fabián Lainez Md Indications: Hematochezia Medicines: Monitored Anesthesia Care Complications: No immediate complications. Estimated blood loss: None. Estimated Blood Loss: Estimated blood loss: none. Procedure: Pre-Anesthesia Assessment: - The risks and benefits of the procedure and the sedation options and risks were discussed with the patient. All questions were answered and informed consent was obtained. After obtaining informed consent, the endoscope was passed under direct vision. Throughout the procedure, the patient's blood pressure, pulse, and oxygen saturations were monitored continuously. The Endoscope was introduced through the mouth, and advanced to the second part of duodenum. The upper GI endoscopy was accomplished without difficulty. The patient tolerated the procedure well. Procedure and risks explained to patient which include but not limited to medication reaction, bleeding, perforation, aspiration , and missed lesions. Judicious gas insufflation was used and gas removal done on the way out. The lumen was always visualized when advancing the scope. Prep was good. Washes and suctioning used as needed to get good visualization of the mucosa. Retroflexion to look at the fundus and cardia of the stomach and GE junction was done. Findings: The Z-line was irregular versus small tongue of Barretts and was found 37 cm from the incisors. Did not biopsy because of recent bleeding and unknown findings yet of colonoscopy. A 1 cm hiatal hernia was present. The stomach was normal. The examined duodenum was normal. The exam was otherwise without abnormality. Impression: - Z-line irregular versus small tongue of Barretts, 37 cm from the incisors. - 1 cm hiatal hernia. - Normal stomach. - Normal examined duodenum. - The examination was otherwise normal. - No specimens collected. Recommendation: - Return patient to [facility] for possible discharge same day. Bam Saleh M.D. Bam Saleh MD 02/21/2022 3:18:04 PM This report has been signed electronically. Note Initiated On: 02/21/2022 2:25 PM Number of Addenda: 2 I attest to the content of the Intraoperative Record and orders documented therein, exceptions below {[id number]}
--- NOTE | 2022-02-21 15:26 | GI REPORT ---
Addendum Number: 1 Addendum Date: 02/22/2022 3:40:44 PM Specimen was collected. Colon polyp was biopsied with cold biopsy forceps. Estimated blood loss minimal. Bam Saleh M.D. Bam Saleh MD 02/22/2022 3:41:44 PM This report has been signed electronically. Patient Name: Mary Thompson Procedure Date: 02/21/2022 2:25 PM Date of : 1945 Admit Type: Inpatient Age: 76 Gender: Female Attending MD: Bam Saleh MD Procedure: Colonoscopy Providers: Bam Saleh MD Referring MD: Fabián Lainez Md Indications: Hematochezia Medicines: Monitored Anesthesia Care Complications: No immediate complications. Estimated blood loss: Minimal. Estimated Blood Loss: Estimated blood loss was minimal. Procedure: Pre-Anesthesia Assessment: - The risks and benefits of the procedure and the sedation options and risks were discussed with the patient. All questions were answered and informed consent was obtained. After I obtained informed consent, the scope was passed under direct vision. Throughout the procedure, the patient's blood pressure, pulse, and oxygen saturations were monitored continuously. The Colonoscope was introduced through the anus and advanced to the terminal ileum, with identification of the appendiceal orifice and IC valve. The colonoscopy was technically difficult and complex due to a redundant colon, significant looping and a tortuous colon. Successful completion of the procedure was aided by using manual pressure and straightening and shortening the scope to obtain bowel loop reduction. The patient tolerated the procedure well. Procedure and risks explained to patient which include but not limited to med reaction, bleeding, perforation, aspiration and missed lesions. Judicious gas insufflation and gas removal done on the way out. The lumen always well visualized when advancing the scope. Prep was fair in the right colon. Washes and suctioning used as needed but small or flat lesions could be missed in right colon. Retroflexion in the rectum to look at the distal rectum and anal canal done. Findings: The terminal ileum appeared normal. The colon (entire examined portion) was significantly redundant. A 30 mm polyp was found in the ascending colon. The polyp was flat. Area was tattooed with an injection of Spot (carbon black). Multiple large-mouthed diverticula were found in the left colon. Internal hemorrhoids were found during retroflexion. The hemorrhoids were moderate. NO fresh nor old blood noted throughout exam except self limited post biopsy of polyp. Brown/yellow particulate stool noted in right colon which confirms bleeding was in the colon. Washes successful but still areas that could hid flat or small polyps. The exam was otherwise without abnormality on direct and retroflexion views. Impression: - The examined portion of the ileum was normal. - Redundant colon. - One 30 mm polyp in the ascending colon. Tattooed. - Diverticulosis in the left colon. - Internal hemorrhoids. - NO fresh nor old blood noted throughout exam except self limited post biopsy of polyp. Brown/yellow particulate stool noted in right colon which confirms bleeding was in the colon. Washes successful but still areas that could hid flat or small polyps. Likely source of bleeding is diverticular. - The examination was otherwise normal on direct and retroflexion views. - No specimens collected. Recommendation: - Return patient to [facility] for possible discharge same day. - Decide on recommendations for polyp removal after pathology back Bam Saleh M.D. Bam Saleh MD 02/21/2022 3:26:29 PM This report has been signed electronically. Note Initiated On: 02/21/2022 2:25 PM Number of Addenda: 1 I attest to the content of the Intraoperative Record and orders documented therein, exceptions below {[id number]}
--- NOTE | 2022-02-21 15:34 | Anesthesiology Progress Note ---
Date of Service February 21, 2022 Anesthesia Post Procedure Vital Signs Vital Signs: Temp Pulse Pulse Resp BP BP Pulse Ox 02/21/22 15:24 58 L 16 164/78 H 96 02/21/22 15:09 61 16 181/99 H 97 02/21/22 14:07 36.6 C 67 16 198/72 H 94 02/21/22 11:07 36.6 C 62 18 176/73 H 95 02/21/22 08:23 61 02/21/22 07:40 37.0 C 73 20 148/91 H 96 02/21/22 03:40 36.8 C 72 20 179/80 H 95 02/21/22 01:33 81 02/20/22 23:00 36.6 C 82 20 193/93 H 95 02/20/22 19:20 36.8 C 65 20 189/85 H 96 02/20/22 15:59 36.8 C 69 18 176/79 H 95 Transfer of Care Handoff Completed per policy Notes Mental Status: alert / awake / arousable and participated in evaluation Patient Amnestic to Procedure: Yes Nausea / Vomiting: adequately controlled Pain: adequately controlled Airway Patency, RR, SpO2: stable & adequate BP & HR: stable & adequate Hydration State: stable & adequate Anesthetic Complications: no major complications apparent and Pt Satisfied with anesthetic care
--- NOTE | 2022-02-21 16:51 | Discharge Summary ---
Date of Service February 21, 2022 Admission HPI Per Admitting Provider Mary Thompson is a 76 y/o female with PMH of hypertension, hypothyroidism, and allergies who presents today with bloody BMs since this AM. She woke up with a strong urge to have a BM and had one episode of nonbloody diarrhea. Shortly after, she had another uge but this time had diarrhea with a moderate amount of sebas red blood with multiple clots. She has had several more episodes of this since it started, one occurring here in our ED. She is beginning to feel lightheaded and short of breath with ambulation, otherwise without any complaints, no abdominal pain/nausea/vomiting, dark tarry stools, syncopal episodes. Has been taking Aleve once a day over the past 2 to 3 days due to some back pain she has had since lifting a heavy bag of mulch a few days ago, otherwise denies frequent or chronic use of NSAIDs. Had a colonoscopy done 7 years ago, when a precancerous polyp was removed, however had most recent colonoscopy 2 years ago without any concerning findings. No history of former GI bleeds or cancer. In ED, and is quite hypertensive, otherwise vital signs within normal and stable, labs significant for hemoglobin 10.8 (no previous labs for reference), sodium 133, otherwise unremarkable. CT A/P showed diverticulosis without diverticulitis, small hiatal hernia, otherwise no acute findings. Patient received 1L NS bolus in ED, hospitalist group was consulted for further evaluation and admission. Principal Diagnosis Diverticular bleed Discharge Exam Constitutional WD/WN, vitals as above Eyes EOM intact bilaterally; no conjunctival abnormality ENMT external ear and nose normal, oropharynx normal Neck trachea midline, no thyromegaly normal visual inspection Respiratory normal respiratory effort, lungs clear to auscultation no respiratory distress Cardiovascular RRR, no murmur, no edema Gastrointestinal (Abdomen) Inspection/Auscultation: abdomen normal to inspection; abdomen not distended Musculoskeletal no cyanosis or clubbing, extremities motor strength 5/5 Skin no rashes, warm and dry Neurologic moves all extremities and awake Psychiatric Orientation: alert, oriented to person and cooperative Discharge Data Allergies Allergy/AdvReac Type Severity Reaction Status Date / Time thimerosal Allergy Severe Hives Verified 02/19/22 11:16 Consultations 02/19/22 11:54 ED Decision to Admit Stat 02/19/22 14:10 Consult Gastroenterology Routine Procedures Performed Operation Date: 02/21/22 16:00 Actual Procedures p Esophagogastroduodenoscopy - Bam Saleh s Colonoscopy Biopsy Cytology - Bam Saleh Ordered Studies 02/19/22 09:30 CT abd pelvis IV con only Stat Hospital Course (1) LGI bleed: Suspected, given sebas red blood per rectum with clots since this morning. With diverticulosis being see on CT, suspect this is the cause. - Hgb 10.8 on admission, trended. No need for tx. Did get 1 dose IV Venofer on 02/21. - GI performed EGD/colo on 02/21. * EGD showed Gan's esophagus - F/u with GI for surveillance. * Ramsay showed diverticuli which were the likely bleeding source. One flat polyp that was biopsied and tatooed. (2) Hypertension: BP presently is 170/70. - Continue atenolol 25 mg twice daily, losartan 20 mg at night. (3) Hypothyroidism: No TSH noted in charts. - Continue levothyroxine 50 mcg daily. (4) Allergies: - Continue Zyrtec, Singulair. Total Time Total Time Spent Total Time Spent (In Minutes): 35 Discharge Plan Discharge Items Patient Disposition: Home - Self-Care Reason For Visit: LGIB Discharge Diagnosis: Likely lower GI bleed from a diverticulus Activity: Resume your previous activity Non-emergency contact: Primary Care Provider and [place] Call non-emergency contact if: your symptoms worsen Follow-up/Referrals: Bam Saleh [Physician] - (Please see Dr. Saleh in 2-3 weeks for follow up of your biopsy and also to discuss any further testing needed.) Serjio Mills [Primary Care Provider] - Diet: Regular Addtl Attending Provider Instructions: Ms. Thompson, You were admitted to the hospital with bleeding from the rectum that was probably from a diverticulum. Please hold off on taking your aspirin for 1 week. This will be safe because it sticks around in your system for quite some time. Please do not take any NSAIDs if you can avoid it. These include ibuprofen, naproxen, Aleve, Motrin, etc. As we discussed, taking your aspirin every other day seems like a good compromise until you getting any further cardiac testing. Please see Dr. Saleh for results on your biopsy during the colonoscopy and if any further testing is needed. Pending Studies at Discharge: Yes Studies:: Biopsy results Stand-Alone Forms: My [facility], Smoking Cessation Medications and DC Order Prescriptions: Continued cetirizine [Zyrtec] 10 mg Tablet 5 mg PO QPM RF: 0 atenolol 25 mg tablet 25 mg PO BID RF: 0 levothyroxine 50 mcg tablet 50 mcg PO QAM RF: 0 montelukast 10 mg tablet 10 mg PO QAM RF: 0 olmesartan 20 mg tablet 20 mg PO QPM RF: 0 Discharge Orders: Discharge Order (Routine); Ordered 02/21/22 Ordered By: Fabián Lainez Admission Data Admit Date/Time: 02/19/22 12:17 Attending Provider: Fabián Lainez Admit Provider: John Marrero Primary Care Provider: Serjio Mills Other Providers: Fabián Lainez ; Bam Saleh Coding Level of Care Code 02500 OBS Care - Discharge Diagnoses LGI bleed K92.2 Hypertension I10 Hypertension type: unspecified Hypothyroidism E03.9 Allergies T78.40XA
== END 2022-02-21 17:58 | disposition home or self-care (01) ==
LOC: 2N 08:47 → ED 08:47 → SUATTDRO 12:17 → 2N 13:42

== ENCOUNTER 2022-02-23 07:50 | Inpatient (IN) ==
--- NOTE | 2022-02-23 08:09 | Emergency Department Note ---
History of Present Illness General Chief complaint: Rectal Bleed Stated complaint: RECTAL BLEEDING Time Seen by Provider: 02/23/22 07:59 History of Present Illness Provider complaint: rectal bleeding This is a 76 yo female who presents with recurrent gi bleed, 2-3 episodes with bright red blood per rectum with clots since last night. Increasing dizziness, near syncope, exertional dyspnea, weakness, and fatigue. No abd pain, chest pain, or palpitations. No trauma. Due to symptoms, family checked BP at home and found was hypotensive with SBP 80's. Denies n/v. No fevers/chills. Denies she is still taking ASA or NSAIDS. Patient recently hospitalist with GI bleed. Underwent EGD/colo and source of bleeding felt to be diverticular. H/H had trended down however no transfusion needed. She was given IV iron infusion during admission. Patient instructed to avoid ASA and NSAIDS. Patient was previously taking ASA daily. Patient initially seen with family practice resident Dr. Carlson. Pt seen during a time of high acuity and national emergency pandemic while wearing PPE. Home Medications Medication Instructions Recorded Confirmed Type cetirizine 10 mg tablet (Zyrtec) 5 mg PO QPM 02/19/22 02/23/22 History levothyroxine 50 mcg tablet 50 mcg PO QAM 02/19/22 02/23/22 History montelukast 10 mg tablet 10 mg PO QAM 02/19/22 02/23/22 History olmesartan 20 mg tablet 20 mg PO QPM 02/19/22 02/23/22 History amlodipine 2.5 mg tablet 2.5 mg PO .AM #30 tab 02/26/22 Rx atenolol 25 mg tablet 25 mg PO DAILY #30 tab 02/26/22 02/23/22 Rx ferrous sulfate 325 mg (65 mg 325 mg PO .MWF #20 tab 02/26/22 Rx iron) tablet Allergies Allergy/AdvReac Type Severity Reaction Status Date / Time thimerosal Allergy Severe Hives Verified 02/19/22 11:16 Past Med/Surg History Medical History Allergies Encounter for pre-operative examination Hypertension Hypothyroidism Family History Other Family history non-contributory Social History Smoking Status: Never smoker Second Hand Exposure: No; Hx Alcohol Use: No Hx Substance Use: No Preferred Language: American Communication Ability: Effective Tie Binder Required: No Beliefs That Will Affect Care: None marital status: Current Living Situation: Spouse Current Living Situation Comment: Lives a medium size trailor Feels Safe at Home: Yes Assistive Devices: None Review of Systems A total of 10 systems reviewed and were otherwise negative All systems reviewed & are unremarkable except as noted in HPI & below Physical Exam Vital Signs Vital Signs - 24 hr 02/23/22 07:53 02/23/22 08:06 02/23/22 08:42 Temperature 36.4 C L 37.0 C Temperature Source Oral Oral Pulse Rate 62 Pulse Rate [Apical] 56 L 57 L Pulse Rhythm [Apical] Regular Regular Respiratory Rate 18 20 20 Respiratory Effort / Characteristics Non-Labored Spontaneous Non-Labored Spontaneous Respiratory Depth Normal Normal Respiratory Pattern Regular Regular Blood Pressure 177/90 H Blood Pressure [Right Arm] 191/87 H 190/86 H Blood Pressure Mean 119 Blood Pressure Mean [Right Arm] 121 120 Blood Pressure Position [Right Arm] Lying Lying Pulse Oximetry 97 98 98 Oxygen Delivery Method Room Air Room Air Room Air Sepsis Recent Fever Within 48 Hours No Sepsis New/Unexplained Change in Mental Status No Sepsis Action Taken by Nursing No Action Required 02/23/22 09:38 02/23/22 10:46 Temperature Temperature Source Pulse Rate Pulse Rate [Apical] 56 L 55 L Pulse Rhythm [Apical] Respiratory Rate 18 16 Respiratory Effort / Characteristics Non-Labored Spontaneous Non-Labored Spontaneous Respiratory Depth Normal Normal Respiratory Pattern Regular Regular Blood Pressure Blood Pressure [Right Arm] 179/78 H 165/81 H Blood Pressure Mean Blood Pressure Mean [Right Arm] 111 109 Blood Pressure Position [Right Arm] Lying Lying Pulse Oximetry 98 98 Oxygen Delivery Method Room Air Room Air Sepsis Recent Fever Within 48 Hours Sepsis New/Unexplained Change in Mental Status Sepsis Action Taken by Nursing GENERAL: alert, well appearing, well nourished, no distress, non-toxic EYE EXAM: normal conjunctiva, PERRL and EOM's grossly intact OROPHARYNX: no exudate, no erythema, lips, buccal mucosa, and tongue normal and mucous membranes are moist NECK: supple, no nuchal rigidity, no adenopathy, non-tender LUNGS: Clear to auscultation. Normal chest wall mechanics, no w/r/r HEART: no murmurs, S1 normal and S2 normal ABDOMEN: abdomen soft, non-tender, normo-active bowel sounds, no masses, no rebound or guarding. BACK: Back is symmetrical on inspection and there is no deformity, no midline tenderness, no CVA tenderness. SKIN: no rashes and no bruising UPPER EXTREMITIES: upper extremities are grossly normal. FROM, nml pulses b/l. LOWER EXTREMITIES: No pitting edema. FROM, nml pulses b/l. NEURO EXAM: Normal sensorium, cranial nerves II-XII grossly intact, normal speech, no gross weakness of arms, no gross weakness of legs. Gross sensation intact. Course Administered Medications Discontinued Medications Amlodipine Besylate (Amlodipine Besylate 5 Mg Tab) 2.5 mg PO NOW ONE Stop: 02/25/22 10:25 Last Admin: 02/25/22 11:33 Dose: 2.5 mg Documented by: [id number] Amlodipine Besylate (Amlodipine Besylate 5 Mg Tab) 2.5 mg PO QAM ONE Stop: 02/26/22 10:52 Last Admin: 02/26/22 11:14 Dose: 2.5 mg Documented by: [id number] Atenolol (Atenolol 25 Mg Tablet) 25 mg PO BID [place] Stop: 03/25/22 20:59 Last Admin: 02/25/22 20:39 Dose: Not Given Documented by: [id number] Admin: 02/25/22 07:27 Dose: 25 mg Documented by: [id number] Admin: 02/24/22 20:06 Dose: 25 mg Documented by: [id number] Admin: 02/24/22 08:41 Dose: 25 mg Documented by: [id number] Admin: 02/23/22 20:23 Dose: 25 mg Documented by: [id number] Atenolol (Atenolol 25 Mg Tablet) 25 mg PO QAM [facility] Stop: 03/28/22 08:59 Last Admin: 02/26/22 09:49 Dose: 25 mg Documented by: [id number] Sodium Chloride (Nss 1000ml) 1,000 mls @ 80 mls/hr IV .[id number] [facility] Stop: 02/24/22 00:29 Last Infusion: 02/24/22 05:52 Dose: 0 mls/hr Documented by: [id number] Admin: 02/23/22 17:07 Dose: 80 mls/hr Documented by: [id number] Levothyroxine Sodium (Levothyroxine Sodium 50 Mcg Tablet) 50 mcg PO DAILYBB [facility] Stop: 03/26/22 06:29 Last Admin: 02/26/22 05:41 Dose: 50 mcg Documented by: [id number] Admin: 02/25/22 05:31 Dose: 50 mcg Documented by: [id number] Admin: 02/24/22 06:25 Dose: 50 mcg Documented by: [id number] Montelukast Sodium (Montelukast Sodium 10 Mg Tablet) 10 mg PO QAM [facility] Stop: 03/26/22 08:59 Last Admin: 02/26/22 09:49 Dose: 10 mg Documented by: [id number] Admin: 02/25/22 07:27 Dose: 10 mg Documented by: [id number] Admin: 02/24/22 08:41 Dose: 10 mg Documented by: [id number] Olmesartan (Olmesartan Medoxomil 20 Mg Tab) 20 mg PO QPM [facility] Stop: 03/25/22 20:59 Last Admin: 02/25/22 20:39 Dose: 20 mg Documented by: [id number] Admin: 02/24/22 20:06 Dose: 20 mg Documented by: [id number] Admin: 02/23/22 20:23 Dose: Not Given Documented by: [id number] Medical Decision Making Differential Diagnosis Differential diagnosis includes etiologies such as diverticulosis, AVM, coagulopathy, colitis, inflammatory bowel disease, malignancy, Jess-Juárez tear, esophagitis, peptic ulcer disease, variceal bleed, gastritis, epistaxis, fissure, hemorrhoids, as well as others were entertained. Medical Records Attestation: I reviewed the patient's medical records. Home Medications Current Medication List: was personally reviewed by me Laboratory Data Attestation: I reviewed the patient's lab results. Result diagrams: 02/26/22 05:09 02/26/22 05:09 Lab Results 02/23/22 02/23/22 02/23/22 Range/Units 08:25 08:25 08:25 WBC 8.26 (4.8-10.8) K/uL RBC 2.79 L (4.2-5.4) M/uL Hgb 8.1 L (12.0-16.0) g/dL Hct 25.3 L (37-47) % MCV 90.7 (80-100) fL MCH 29.0 (25-34) pg MCHC 32.0 (32-36) g/dL RDW Std Deviation 48.9 H (36.4-46.3) fL RDW Coeff of Naveed 14.9 H (11.5-14.5) % Plt Count 372 (130-400) K/uL MPV 9.2 (7.4-10.4) fL Immature Gran % (Auto) 0.6 % Neut % (Auto) 67.4 % Lymph % (Auto) 18.2 % [place] % (Auto) 8.7 % Eos % (Auto) 4.7 % Baso % (Auto) 0.4 % Neut # (Auto) 5.57 (1.4-6.5) K/uL Lymph # (Auto) 1.50 (1.2-3.4) K/uL [place] # (Auto) 0.72 H (0.11-0.59) K/uL Eos # (Auto) 0.39 (0-0.5) K/uL Baso # (Auto) 0.03 (0-0.2) K/uL Immature Gran # (Auto) 0.05 H (0.00-0.02) K/uL Absolute Nucleated RBC 0.02 H (0-0) K/uL Nucleated RBC % (auto) 0.2 % PT 10.4 (9.0-12.0) Seconds INR 1.0 (0.9-1.1) APTT 25.9 (21.0-31.0) Seconds PTT Ratio 0.9 Sodium (136-145) mmol/L Potassium (3.5-5.1) mmol/L Chloride (98-107) mmol/L Carbon Dioxide (21-32) mmol/L Anion Gap (3-11) BUN (6-23) mg/dl Creatinine (0.6-1.2) mg/dl Est Cr Clr Drug Dosing ml/min Est GFR ( Amer) ml/min Est GFR (Non-Af Amer) ml/min BUN/Creatinine Ratio (10-20) Glucose (70-99(Fasting)) mg/dl Calcium (8.5-10.1) mg/dl Total Bilirubin (0.2-1.0) mg/dl AST (13-39) U/L ALT (7-52) U/L Alkaline Phosphatase (34-104) U/L Total Protein (6.0-8.3) gm/dl Albumin (3.4-5.0) gm/dl Globulin (2.5-4.0) gm/dl Albumin/Globulin Ratio (0.9-2) SARS-CoV-2, RNA, NAAT (NEGATIVE) Blood Type O Positive Antibody Screen NEGATIVE Crossmatch See Detail 02/23/22 02/23/22 02/23/22 Range/Units 08:25 11:31 16:30 WBC (4.8-10.8) K/uL RBC (4.2-5.4) M/uL Hgb 7.7 L (12.0-16.0) g/dL Hct 23.9 L (37-47) % MCV (80-100) fL MCH (25-34) pg MCHC (32-36) g/dL RDW Std Deviation (36.4-46.3) fL RDW Coeff of Naveed (11.5-14.5) % Plt Count (130-400) K/uL MPV (7.4-10.4) fL Immature Gran % (Auto) % Neut % (Auto) % Lymph % (Auto) % [place] % (Auto) % Eos % (Auto) % Baso % (Auto) % Neut # (Auto) (1.4-6.5) K/uL Lymph # (Auto) (1.2-3.4) K/uL [place] # (Auto) (0.11-0.59) K/uL Eos # (Auto) (0-0.5) K/uL Baso # (Auto) (0-0.2) K/uL Immature Gran # (Auto) (0.00-0.02) K/uL Absolute Nucleated RBC (0-0) K/uL Nucleated RBC % (auto) % PT (9.0-12.0) Seconds INR (0.9-1.1) APTT (21.0-31.0) Seconds PTT Ratio Sodium 132 L (136-145) mmol/L Potassium 4.2 (3.5-5.1) mmol/L Chloride 102 (98-107) mmol/L Carbon Dioxide 26 (21-32) mmol/L Anion Gap 4 (3-11) BUN 10 (6-23) mg/dl Creatinine 0.95 (0.6-1.2) mg/dl Est Cr Clr Drug Dosing 58.0 ml/min Est GFR ( Amer) 68.4 ml/min Est GFR (Non-Af Amer) 59.0 ml/min BUN/Creatinine Ratio 10.5 (10-20) Glucose 101 H (70-99(Fasting)) mg/dl Calcium 8.7 (8.5-10.1) mg/dl Total Bilirubin 0.3 (0.2-1.0) mg/dl AST 16 (13-39) U/L ALT 13 (7-52) U/L Alkaline Phosphatase 82 (34-104) U/L Total Protein 6.2 (6.0-8.3) gm/dl Albumin 3.4 (3.4-5.0) gm/dl Globulin 2.8 (2.5-4.0) gm/dl Albumin/Globulin Ratio 1.2 (0.9-2) SARS-CoV-2, RNA, NAAT NEGATIVE (NEGATIVE) Blood Type Antibody Screen Crossmatch 02/23/22 Range/Units 20:04 WBC (4.8-10.8) K/uL RBC (4.2-5.4) M/uL Hgb 7.3 L (12.0-16.0) g/dL Hct 22.9 L (37-47) % MCV (80-100) fL MCH (25-34) pg MCHC (32-36) g/dL RDW Std Deviation (36.4-46.3) fL RDW Coeff of Naveed (11.5-14.5) % Plt Count (130-400) K/uL MPV (7.4-10.4) fL Immature Gran % (Auto) % Neut % (Auto) % Lymph % (Auto) % [place] % (Auto) % Eos % (Auto) % Baso % (Auto) % Neut # (Auto) (1.4-6.5) K/uL Lymph # (Auto) (1.2-3.4) K/uL [place] # (Auto) (0.11-0.59) K/uL Eos # (Auto) (0-0.5) K/uL Baso # (Auto) (0-0.2) K/uL Immature Gran # (Auto) (0.00-0.02) K/uL Absolute Nucleated RBC (0-0) K/uL Nucleated RBC % (auto) % PT (9.0-12.0) Seconds INR (0.9-1.1) APTT (21.0-31.0) Seconds PTT Ratio Sodium (136-145) mmol/L Potassium (3.5-5.1) mmol/L Chloride (98-107) mmol/L Carbon Dioxide (21-32) mmol/L Anion Gap (3-11) BUN (6-23) mg/dl Creatinine (0.6-1.2) mg/dl Est Cr Clr Drug Dosing ml/min Est GFR ( Amer) ml/min Est GFR (Non-Af Amer) ml/min BUN/Creatinine Ratio (10-20) Glucose (70-99(Fasting)) mg/dl Calcium (8.5-10.1) mg/dl Total Bilirubin (0.2-1.0) mg/dl AST (13-39) U/L ALT (7-52) U/L Alkaline Phosphatase (34-104) U/L Total Protein (6.0-8.3) gm/dl Albumin (3.4-5.0) gm/dl Globulin (2.5-4.0) gm/dl Albumin/Globulin Ratio (0.9-2) SARS-CoV-2, RNA, NAAT (NEGATIVE) Blood Type Antibody Screen Crossmatch Imaging Data Radiologist's Impression: Chest X-Ray 02/23/22 08:16 XR chest 1V portable CLINICAL HISTORY: breathlessness COMPARISON STUDY: No previous studies for comparison. FINDINGS: Incidental note is made of severe degenerative changes of the right shoulder. Lung volumes are normal. No pneumothorax or pleural effusion is noted. Note is made of cardiomegaly without evidence for pulmonary edema. Linear left basilar opacities favor atelectasis or scarring. No consolidation to suggest pneumonia. IMPRESSION: 1. Cardiomegaly without evidence for pulmonary edema. 2. Linear left basilar opacities suggestive of atelectasis or scarring. ACT 112: Negative or not required by law. Electronically signed by: Bobo Reynoso M.D. 02/23/2022 9:03 AM ECG Data Attestation: I personally reviewed and interpreted this ECG as follows: Indication: + weakness Rate (beats per minute): 54 Rhythm: + sinus bradycardia ECG Intervals/blocks: + Normal QRS and + Normal QT ECG [place]: + Normal ECG ST segments: + Nonspecific ST abnormalities MDM Narrative An order was placed for continuous cardiac monitoring. The monitor shows a rate of _54_ with _sinus bradycardia_ rhythm. This is a 76-year-old female presents emergency department due to recurrent episode of bright red blood per rectum. Patient with recent admission and diagnosis of diverticular bleed following EGD/colonoscopy. Patient was found to be anemic although did not require urgent blood transfusion. Patient states since going home she has had persistent weakness, dizziness, poor appetite, worse with postural change and exertion. Patient has also noticed exertional dy spnea. Patient has had a near syncopal episode at home and this morning with her symptoms was found to be hypotensive by family who checked her blood pressure. Patient had 3 recurrent episodes of GI bleed overnight into this morning. Patient's H&H stable compared to prior although given persistent symptoms and risk of recurrent bleeding, case was discussed with hospitalist for additional evaluation and management. Impression & Plan Acute GI bleeding, Anemia, Dizziness, Generalized weakness, Dyspnea on exertion Discharge Plan Visit Data Patient Disposition: Admitted As Inpatient Discharge Instructions Interventions: ED Discharge Assessment Last Done: 02/23/22 15:16 Resident Activity Tracking Resident Involvement: Resident Care Provided Care Provided: Adult ED Discharge Problem: Anemia Qualifiers: Anemia type: other cause Other causes of anemia: acute posthemorrhagic Qualified Code(s): D62 - Acute posthemorrhagic anemia
[2022-02-23 08:44] LABS: Basophils # (auto) 0.03 K/uL (0-0.2); Basophils % (auto) 0.4 %; Eosinophils # (auto) 0.39 K/uL (0-0.5); Eosinophils % (auto) 4.7 %; Hematocrit (blood only) 25.3 % (37-47); Hemoglobin 8.1 g/dL (12.0-16.0); Immature Granulocytes # (auto) 0.05 K/uL (0.00-0.02); Immature Granulocytes % (auto) 0.6 %; Lymphocytes % (auto) 18.2 %; Mean Corpuscular Volume 90.7 fL (80-100); Mean Platelet Volume 9.2 fL (7.4-10.4); Monocytes # (auto) 0.72 K/uL (0.11-0.59); Monocytes % (auto) 8.7 %; Neutrophils # (auto) 5.57 K/uL (1.4-6.5); Neutrophils % (auto) 67.4 %; Nucleated RBC # (auto) 0.02 K/uL (0-0); Nucleated RBC % (auto) 0.2 %; Platelet Count 372 K/uL (130-400); RDW Coefficient of Variation 14.9 % (11.5-14.5); RDW Standard Deviation 48.9 fL (36.4-46.3); Red Blood Count 2.79 M/uL (4.2-5.4); White Blood Count 8.26 K/uL (4.8-10.8)
[2022-02-23 08:54] LABS: Partial Thromboplastin Ratio 0.9; Partial Thromboplastin Time 25.9 Seconds (21.0-31.0); Prothrombin Time 10.4 Seconds (9.0-12.0)
--- NOTE | 2022-02-23 09:04 | XRay Report ---
XR chest 1V portable CLINICAL HISTORY: breathlessness COMPARISON STUDY: No previous studies for comparison. FINDINGS: Incidental note is made of severe degenerative changes of the right shoulder. Lung volumes are normal. No pneumothorax or pleural effusion is noted. Note is made of cardiomegaly without eviden ce for pulmonary edema. Linear left basilar opacities favor atelectasis or scarring. No consolidation to suggest pneumonia. IMPRESSION: 1. Cardiomegaly without evidence for pulmonary edema. 2. Linear left basilar opacities suggestive of atelectasis or scarring. ACT 112: Negative or not required by law. Electronically signed by: Bobo Reynoso M.D. 02/23/2022 9:03 AM
[2022-02-23 09:05] LABS: Albumin Globulin Ratio 1.2 (0.9-2); Albumin Level 3.4 gm/dl (3.4-5.0); BUN Creatinine Ratio 10.5 (10-20); Bilirubin,Total 0.3 mg/dl (0.2-1.0); Calcium 8.7 mg/dl (8.5-10.1); Est GFR (African American) 68.4 ml/min; Globulin 2.8 gm/dl (2.5-4.0); Potassium 4.2 mmol/L (3.5-5.1); Total Protein 6.2 gm/dl (6.0-8.3)
--- NOTE | 2022-02-23 11:17 | History & Physical Report ---
Date of Service February 23, 2022 Assessment & Plan (1) LGI bleed: Plan: Likely acute diverticular bleed. Patient will have NM RBC scan. will start clear liquid diet.Hemoglobin appears atble, however given acute GI bleed, anticipate it is concentrated. Patient also is having symptoms of fatigue. Likely symptomatic anemia, may require transfusion. (2) Blood in stool: Plan: as stated above. Most likely diverticular bleed. (3) Anemia: Plan: Patient appears to be having symptomatic anemia. will consider 1 PRBC transfusion. will recheck hemoglobin and give 1 liter of fluids. (4) Hypothyroidism: Plan: resume home meds (5) Hypertension: Plan: resume home meds Plan: DVT: SCDs History of Present Illness Chief Complaint: lower GI bleed. Primary Care Provider: Serjio Mills This is a pleasant 76 yo female who was recently hospitalized for lower GI bleed and discharged on 02/21/22. Patient's daughter is at bedside and explains how toma Thompson is very active. 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 However, since discharge, she has noticed that she has been fatigued, gets dizzy when she stands up and is having difficulty ambulating to the bathroom. Her daughter states her BP has been low when she stands. She noted systolic BP in the 80s. Patient last night has had 3 epsidoes of hematoquezia with bright red blood in her toilet with clots. Given her symptoms and these 3 episodes of bleeding, hospitalist service was consulted. Allergies Allergy/AdvReac Type Severity Reaction Status Date / Time thimerosal Allergy Severe Hives Verified 02/19/22 11:16 Home Medications Medication Instructions Recorded Confirmed Type atenolol 25 mg tablet 25 mg PO BID 02/19/22 02/23/22 History cetirizine 10 mg tablet (Zyrtec) 5 mg PO QPM 02/19/22 02/23/22 History levothyroxine 50 mcg tablet 50 mcg PO QAM 02/19/22 02/23/22 History montelukast 10 mg tablet 10 mg PO QAM 02/19/22 02/23/22 History olmesartan 20 mg tablet 20 mg PO QPM 02/19/22 02/23/22 History Past Med/Surg History Medical History Allergies Encounter for pre-operative examination Hypertension Hypothyroidism Family History Other Family history non-contributory Social History Smoking Status: Never smoker Second Hand Exposure: No; Hx Alcohol Use: No Hx Substance Use: No Preferred Language: Albanian Communication Ability: Effective Director Of Marketing Required: No Beliefs That Will Affect Care: None marital status: Current Living Situation: Spouse Current Living Situation Comment: Lives a medium size trailor Feels Safe at Home: Yes Assistive Devices: None Review of Systems Review of Systems: Constitutional: lightheaded/dizzy with ambulation; No fever/chills, weakness, fatigue, myalgias, anorexia, night sweats Eyes: No diplopia, no worsening or blurred vision ENT: normal hearing, no trouble swallowing Respiratory: MULLEN since this AM; No cough, sputum, dyspnea at rest Cardiovascular: No chest pain, tightness or palpitations Abdomen: No pain, nausea, vomiting, diarrhea with bright red blood, clots : Denies dysuria, hematuria, increased urgency/frequency, urinary retention Musculoskeletal: No joint pain, calf pain, swelling Neurologic: No weakness, numbness/tingling, or balance problems Psychiatric: No anxiety or depression Skin: No rash or itch Physical Exam Physical Exam: General: awake, alert, no apparent distress, with pallor Head: Normocephalic, atraumatic ENT: PERRL, EOMI, no pharyngeal exudate, mucous membranes moist Chest: Clear to auscultation, on room air, no adventitious breath sounds Cardiac: Regular rate and rhythm, no murmur, no JVD, normal peripheral pulses, good capillary refill Abdominal: NABS x 4 quadrants, soft, nontender to palpation, no rebound, guarding or tenderness Extremities: Normal inspection, no peripheral edema or erythema, calfs nontender to palpation Psych: Normal mood and affect Neuro: AAO x 3, strength intact bilaterally and rated 5/5, no motor deficits, speech is clear, no peripheral sensory deficits Skin: no rash or erythema Results & Data Results & Data ([facility]) Vital Signs (Past 12 Hours) Vital Signs Temp Pulse Pulse Resp BP BP Pulse Ox 02/23/22 10:46 55 L 16 165/81 H 98 02/23/22 09:38 56 L 18 179/78 H 98 02/23/22 08:42 57 L 20 190/86 H 98 02/23/22 08:06 37.0 C 56 L 20 191/87 H 98 02/23/22 07:53 36.4 C L 62 18 177/90 H 97 PG Care Time/CCT Total # of Minutes Spent Total Time Spent with Patient: Total time spent is greater than 50% in coordination of care (as documented) at patient's floor/unit and/or counseling patient: Coding Level of Care Code 67248 Initial Inpt Care Lvl 3 Diagnoses Blood in stool K92.1 Anemia D64.9 Anemia type: unspecified type Hypothyroidism E03.9 LGI bleed K92.2 Hypertension I10 Hypertension type: unspecified (1) Anemia Anemia type: unspecified type Qualified Code(s): D64.9 - Anemia, unspecified (2) Hypertension Hypertension type: unspecified Qualified Code(s): I10 - Essential (primary) hypertension
[2022-02-23] MEDS ORDERED: SODIUM CHLORIDE 0.9% 1000ML 1,000 ML IV SCH (12:00)
--- NOTE | 2022-02-23 16:05 | Nuclear Medicine Report ---
NM GI bleeding CLINICAL HISTORY: lower GI bleed TECHNIQUE: Following the intravenous injection of 26.2 mCi of Tc-99m tagged autologous RBCs, planar i mages of the abdomen were obtained over the course of one hour. COMPARISON: None available at the time of this dictation. FINDINGS: Expected radiopharmaceutical uptake is seen in the liver, spleen and blood pool. No significant pool of radiopharmaceutical activity is identified over the region of the bowel to sug gest GI blood loss. However, if patient re-bleeds within 24 hours, additional follow-up imaging may b e obtained with the current radiopharmaceutical activity. IMPRESSION: No evidence of acute gastrointestinal bleeding. ACT 112: Negative or not required by law. Electronically signed by: Farhad Carver M.D. 02/23/2022 4:04 PM
--- NOTE | 2022-02-23 16:13 | Gastrointestinal Consultation ---
Date of Consultation February 23, 2022 Assessment & Plan (1) Acute GI bleeding: Most likely recurent diverticular. Doubt biopsy of polyp causing bleeding. Clears for now. Clinically stopped bleeding. No plan for repeat scoping at this time. Follow H and H and transfuse as needed. 30 mm AC polyp--sessile serrated--outpt EMR I, Bam Saleh MD have spent 20 minutes of discrete time performing the activities of this visit which include but are not limited to review of the medical record, obtaining a history, physical exam, and entering information in the electronic record. . History of Present Illness Reason for Consultation: GI bleeding Attending Physician: Garcia Muniz History of Present Illness CC bleeding HPI Daughter Sharda with patient for H and P. Pt just DCed 02/21/2022 for GI bleeding. I saw the paitent during that admit and did EGD and colonscopy. EGD showed irrregular Z line vs small area of Barretts and 1 cm HH. Colonscopy showed 30 mmg AC polyp biopsied with path back today sessile serrated lesion, left sided diverticulosis. Based on some stool in right colon and no other explanation, diverticular bleeding deemed most likely. There was not bleeding at time of scopes so patient DCed. Overnight last night she had red bloody stools with clots with some near syncope. Hgb at ER 8.1 vs 7.7 on 02/21/2022. No abd pain. No stools since this am. Tagged RBC scan negative. Allergies Allergy/AdvReac Type Severity Reaction Status Date / Time thimerosal Allergy Severe Hives Verified 02/19/22 11:16 Home Medications Medication Instructions Recorded Confirmed Type atenolol 25 mg tablet 25 mg PO BID 02/19/22 02/23/22 History cetirizine 10 mg tablet (Zyrtec) 5 mg PO QPM 02/19/22 02/23/22 History levothyroxine 50 mcg tablet 50 mcg PO QAM 02/19/22 02/23/22 History montelukast 10 mg tablet 10 mg PO QAM 02/19/22 02/23/22 History olmesartan 20 mg tablet 20 mg PO QPM 02/19/22 02/23/22 History Patient History Medical History Allergies Encounter for pre-operative examination Hypertension Hypothyroidism Family History Other Family history non-contributory Social History Smoking Status: Never smoker Second Hand Exposure: No; Hx Alcohol Use: No Hx Substance Use: No Preferred Language: Romanian Communication Ability: Effective Radio Tester Required: No Beliefs That Will Affect Care: None marital status: Current Living Situation: Spouse Current Living Situation Comment: Lives a medium size trailor Feels Safe at Home: Yes Assistive Devices: None Results & Data ([facility]) Vital Signs (Past 12 Hours) Vital Signs Temp Pulse Pulse Resp BP BP Pulse Ox 02/23/22 12:14 57 L 16 177/96 H 96 02/23/22 10:46 55 L 16 165/81 H 98 02/23/22 09:38 56 L 18 179/78 H 98 02/23/22 08:42 57 L 20 190/86 H 98 02/23/22 08:06 37.0 C 56 L 20 191/87 H 98 02/23/22 07:53 36.4 C L 62 18 177/90 H 97
[2022-02-23 16:57] LABS: Hematocrit (blood only) 23.9 % (37-47); Hemoglobin 7.7 g/dL (12.0-16.0)
--- NOTE | 2022-02-23 18:19 | Electrocardiogram Report ---
Test Reason : Blood Pressure : / mmHG Vent. Rate : 054 BPM Atrial Rate : 054 BPM P-R Int : 158 ms QRS Dur : 092 ms QT Int : 480 ms P-R-T Axes : 021 005 112 degrees QTc Int : 455 ms Sinus bradycardia with sinus arrhythmia Left ventricular hypertrophy with repolarization abnormality Abnormal ECG When compared with ECG of 19-FEB-2022 16:24, Nonspecific T wave abnormality no longer evident in Inferior leads Inverted T waves have replaced nonspecific T wave abnormality in Lateral leads Confirmed by Varinder Osuna ([id number]) on 02/23/2022 6:19:04 PM Referred By: REFERRED SELF Confirmed By:Darwin Osuna
[2022-02-23 20:21] LABS: Hematocrit (blood only) 22.9 % (37-47); Hemoglobin 7.3 g/dL (12.0-16.0)
[2022-02-23] MEDS: OLMESARTAN MEDOXOMIL 20 MG TAB PO SCH (20:23)
[2022-02-23] MEDS: ATENOLOL 25 MG TABLET PO SCH (20:23)
[2022-02-23] MEDS ORDERED: SODIUM CHLORIDE 0.9% 250 ML IV PRN (22:22)
[2022-02-24] MEDS: LEVOTHYROXINE SODIUM 50 MCG TABLET PO SCH (06:25)
[2022-02-24] MEDS: ATENOLOL 25 MG TABLET PO SCH ×2 (08:41→20:06)
[2022-02-24] MEDS: MONTELUKAST SODIUM 10 MG TABLET PO SCH (08:41)
[2022-02-24 09:43] LABS: Hematocrit (blood only) 27.8 % (37-47); Hemoglobin 9.1 g/dL (12.0-16.0); Mean Corpuscular Hemoglobin 29.6 pg (25-34); Mean Corpuscular Hgb Conc 32.7 g/dL (32-36); Mean Corpuscular Volume 90.6 fL (80-100); Mean Platelet Volume 9.2 fL (7.4-10.4); Platelet Count 401 K/uL (130-400); RDW Coefficient of Variation 16.1 % (11.5-14.5); Red Blood Count 3.07 M/uL (4.2-5.4); White Blood Count 8.51 K/uL (4.8-10.8)
[2022-02-24 09:58] LABS: BUN Creatinine Ratio 10.3 (10-20); Calcium 8.9 mg/dl (8.5-10.1); Creatinine Clr Calc Pharmacy 63.4 ml/min; Est GFR (African American) 76.1 ml/min; Est GFR (Non-African American) 65.6 ml/min; Potassium 3.5 mmol/L (3.5-5.1)
--- NOTE | 2022-02-24 13:20 | Gastroenterology Progress Note ---
Date of Service February 24, 2022 Assessment & Plan (1) Acute GI bleeding: Plan: Likely diverticular--supportive care for now anemia--follow and transfuse prn 30 mm AC polyp--serrated---outpt EMR if pt desires. IBam MD have spent 10 minutes of discrete time performing the activities of this visit which include but are not limited to review of the medical record, obtaining a history, physical exam, and entering information in the electronic record. Subjective CC GI bleeding HPI Pt with 2 red stools this am but smaller than outpt. Hgb 9.1 today. Tolerating clear liquids. Physical Exam Gastrointestinal (Abdomen): normal bowel sounds, soft, nontender, no hepatosplenomegaly Results & Data ([facility]) Vital Signs (Past 12 Hours) Vital Signs Temp Pulse Pulse Resp BP BP Pulse Ox 02/24/22 12:15 36.7 C 63 18 198/81 H 96 02/24/22 12:00 65 181/78 H 02/24/22 08:00 69 02/24/22 07:43 36.7 C 68 18 186/79 H 95 02/24/22 04:24 36.6 C 62 20 173/79 H 95 02/24/22 04:15 36.6 C 62 20 173/79 H 95 02/24/22 03:45 37.1 C 65 18 157/77 H 96 02/24/22 02:45 37.2 C 69 18 161/79 H 96 02/24/22 02:15 37.1 C 62 18 165/78 H 95 02/24/22 02:00 36.7 C 66 18 172/68 H 94 02/24/22 01:44 36.7 C 66 18 176/70 H 95
[2022-02-24] MEDS: OLMESARTAN MEDOXOMIL 20 MG TAB PO SCH (20:06)
--- NOTE | 2022-02-24 21:18 | Hospitalist Progress Note ---
Date of Service February 24, 2022 Assessment & Plan (1) LGI bleed: Plan: Likely acute diverticular bleed. Patient will have NM RBC scan. will start clear liquid diet.Hemoglobin appears atble, however given acute GI bleed, anticipate it is concentrated. Patient also is having symptoms of fatigue. Likely symptomatic anemia, may require transfusion. Patient required transfusion of 1 PRBC overnight. Hemoglobin improved to over 9. Patient continues to have symptoms but her symptoms have improved. will montor. (2) Blood in stool: Plan: as stated above. Most likely diverticular bleed. (3) Anemia: Plan: Patient appears to be having symptomatic anemia. will consider 1 PRBC transfusion. will recheck hemoglobin and give 1 liter of fluids. (4) Hypothyroidism: Plan: resume home meds (5) Hypertension: Plan: resume home meds Plan: DVT: SCDs Admission and Anticipated Discharge Date Admission Date: February 23, 2022 Subjective Patient reports she has 2 red stools this AM. Patient states she feels more energetic but is not at her baseline yet. She still felt weak when she walked to the bathroom. Review of Systems Review of Systems: All systems reviewed & are unremarkable except as noted in HPI & below Physical Exam Physical Exam: General: awake, alert, no apparent distress, with pallor Head: Normocephalic, atraumatic ENT: PERRL, EOMI, no pharyngeal exudate, mucous membranes moist Chest: Clear to auscultation, on room air, no adventitious breath sounds Cardiac: Regular rate and rhythm, no murmur, no JVD, normal peripheral pulses, good capillary refill Abdominal: NABS x 4 quadrants, soft, nontender to palpation, no rebound, guarding or tenderness Extremities: Normal inspection, no peripheral edema or erythema, calfs nontender to palpation Psych: Normal mood and affect Neuro: AAO x 3, strength intact bilaterally and rated 5/5, no motor deficits, speech is clear, no peripheral sensory deficits Skin: no rash or erythema Results & Data Results & Data ([facility]) Vital Signs (Past 12 Hours) Vital Signs Temp Pulse Pulse Pulse Resp BP Pulse Ox 02/24/22 19:06 36.5 C 67 18 135/75 93 02/24/22 17:30 165/71 H 02/24/22 16:00 55 L 02/24/22 14:43 36.4 C 66 20 176/78 H 98 02/24/22 12:15 36.7 C 63 18 198/81 H 96 02/24/22 12:00 65 181/78 H PG Care Time/CCT Total # of Minutes Spent Total Time Spent with Patient: Total time spent is greater than 50% in coordination of care (as documented) at patient's floor/unit and/or counseling patient: Coding Level of Care Code 42158 Subseq Hosp Care Lvl 2 Diagnoses LGI bleed K92.2 Blood in stool K92.1 Anemia D62 Anemia type: other cause Other causes of anemia: acute posthemorrhagic Hypothyroidism E03.9 Hypertension I10 Hypertension type: unspecified (1) Anemia Anemia type: other cause Other causes of anemia: acute posthemorrhagic Qualified Code(s): D62 - Acute posthemorrhagic anemia (2) Hypertension Hypertension type: unspecified Qualified Code(s): I10 - Essential (primary) hypertension
[2022-02-25] MEDS: LEVOTHYROXINE SODIUM 50 MCG TABLET PO SCH (05:31)
[2022-02-25 06:58] LABS: Hematocrit (blood only) 26.9 % (37-47); Hemoglobin 8.5 g/dL (12.0-16.0); Mean Corpuscular Hemoglobin 28.6 pg (25-34); Mean Corpuscular Hgb Conc 31.6 g/dL (32-36); Mean Corpuscular Volume 90.6 fL (80-100); Platelet Count 373 K/uL (130-400); RDW Coefficient of Variation 16.2 % (11.5-14.5); RDW Standard Deviation 51.6 fL (36.4-46.3); Red Blood Count 2.97 M/uL (4.2-5.4); White Blood Count 6.62 K/uL (4.8-10.8)
[2022-02-25] MEDS: MONTELUKAST SODIUM 10 MG TABLET PO SCH (07:27)
[2022-02-25] MEDS: ATENOLOL 25 MG TABLET PO SCH ×2 (07:27→20:39)
[2022-02-25 07:53] LABS: BUN Creatinine Ratio 8.9 (10-20); Calcium 8.5 mg/dl (8.5-10.1); Creatinine Clr Calc Pharmacy 68.5 ml/min; Est GFR (African American) 85.5 ml/min; Est GFR (Non-African American) 73.7 ml/min; Potassium 3.7 mmol/L (3.5-5.1)
[2022-02-25] MEDS ORDERED: amLODIPine BESYLATE 5 MG TAB PO ONE (10:24)
--- NOTE | 2022-02-25 15:37 | Gastroenterology Progress Note ---
Date of Service February 25, 2022 Assessment & Plan (1) Acute GI bleeding: Plan: Likely diverticular--supportive care for now, because last stool was last night clinically she has stopped despite drop in Hgb. Advance to low fiber diet. anemia--follow and transfuse prn 30 mm AC polyp--serrated---outpt EMR if pt desires. IBam MD have spent 12 minutes of discrete time performing the activities of this visit which include but are not limited to review of the medical record, obtaining a history, physical exam, and entering information in the electronic record. Admission and Anticipated Discharge Date Admission Date: February 23, 2022 Subjective CC bleeding HPI Last stool was last night. Red but small amount. NO abd pain. Tolerating clear liquid diet. Hgb 8.5 today (vs 9.1). Physical Exam Gastrointestinal (Abdomen): normal bowel sounds, soft, nontender, no hepatosplenomegaly Results & Data ([facility]) Vital Signs (Past 12 Hours) Vital Signs Temp Pulse Pulse Pulse Resp BP Pulse Ox 02/25/22 15:00 63 02/25/22 11:27 36.5 C 56 L 18 151/81 H 93 02/25/22 09:00 61 02/25/22 07:52 61 02/25/22 07:33 36.7 C 58 L 18 195/77 H 95
--- NOTE | 2022-02-25 20:13 | Hospitalist Progress Note ---
Date of Service February 25, 2022 Assessment & Plan (1) LGI bleed: Plan: Likely acute diverticular bleed. Patient will have NM RBC scan. will start clear liquid diet.Hemoglobin appears atble, however given acute GI bleed, anticipate it is concentrated. Patient also is having symptoms of fatigue. Likely symptomatic anemia, may require transfusion. Patient required transfusion of 1 PRBC overnight. Hemoglobin improved. Remains above 8. will monitor hemoglobin overnight. Advance diet to low fiber. (2) Blood in stool: Plan: as stated above. Most likely diverticular bleed. No new epiosdes overnight (02/25) (3) Anemia: Plan: Patient appears to be having symptomatic anemia. received 1 unit of PRBC (4) Hypothyroidism: Plan: resume home meds (5) Hypertension: Plan: due to orthostasis, will decrease atenolol to 25 mg po daily. add amlodipine Plan: DVT: SCDs Admission and Anticipated Discharge Date Admission Date: February 23, 2022 Subjective 76 yo reports no new symptoms. She feels less fatigued Review of Systems Review of Systems: All systems reviewed & are unremarkable except as noted in HPI & below Physical Exam Physical Exam: General: awake, alert, no apparent distress, with pallor Head: Normocephalic, atraumatic ENT: PERRL, EOMI, no pharyngeal exudate, mucous membranes moist Chest: Clear to auscultation, on room air, no adventitious breath sounds Cardiac: Regular rate and rhythm, no murmur, no JVD, normal peripheral pulses, good capillary refill Abdominal: NABS x 4 quadrants, soft, nontender to palpation, no rebound, guarding or tenderness Extremities: Normal inspection, no peripheral edema or erythema, calfs nontender to palpation Psych: Normal mood and affect Neuro: AAO x 3, strength intact bilaterally and rated 5/5, no motor deficits, speech is clear, no peripheral sensory deficits Skin: no rash or erythema Results & Data Results & Data ([facility]) Vital Signs (Past 12 Hours) Vital Signs Temp Pulse Pulse Resp BP BP Pulse Ox 02/25/22 19:12 36.7 C 65 18 180/78 H 94 02/25/22 15:43 36.5 C 55 L 16 173/77 H 95 02/25/22 15:00 63 02/25/22 11:27 36.5 C 56 L 18 151/81 H 93 06/18/22 09:00 61 PG Care Time/CCT Total # of Minutes Spent Total Time Spent with Patient: Total time spent is greater than 50% in coordination of care (as documented) at patient's floor/unit and/or counseling patient: Coding Level of Care Code 21105 Subseq Hosp Care Lvl 3 Diagnoses LGI bleed K92.2 Blood in stool K92.1 Anemia D62 Anemia type: other cause Other causes of anemia: acute posthemorrhagic Hypothyroidism E03.9 Hypertension I10 Hypertension type: unspecified (1) Anemia Anemia type: other cause Other causes of anemia: acute posthemorrhagic Qualified Code(s): D62 - Acute posthemorrhagic anemia (2) Hypertension Hypertension type: unspecified Qualified Code(s): I10 - Essential (primary) hypertension
[2022-02-25] MEDS: OLMESARTAN MEDOXOMIL 20 MG TAB PO SCH (20:39)
[2022-02-26] MEDS: LEVOTHYROXINE SODIUM 50 MCG TABLET PO SCH (05:41)
[2022-02-26 06:14] LABS: Basophils # (auto) 0.05 K/uL (0-0.2); Basophils % (auto) 0.7 %; Eosinophils # (auto) 0.37 K/uL (0-0.5); Hematocrit (blood only) 27.8 % (37-47); Hemoglobin 8.9 g/dL (12.0-16.0); Immature Granulocytes # (auto) 0.03 K/uL (0.00-0.02); Immature Granulocytes % (auto) 0.4 %; Lymphocytes # (auto) 1.42 K/uL (1.2-3.4); Lymphocytes % (auto) 19.1 %; Mean Corpuscular Hemoglobin 29.1 pg (25-34); Mean Corpuscular Volume 90.8 fL (80-100); Mean Platelet Volume 9.4 fL (7.4-10.4); Monocytes # (auto) 0.56 K/uL (0.11-0.59); Monocytes % (auto) 7.5 %; Neutrophils % (auto) 67.3 %; Platelet Count 404 K/uL (130-400); RDW Coefficient of Variation 16.5 % (11.5-14.5); RDW Standard Deviation 52.2 fL (36.4-46.3); Red Blood Count 3.06 M/uL (4.2-5.4); White Blood Count 7.43 K/uL (4.8-10.8)
[2022-02-26 06:33] LABS: Albumin Globulin Ratio 1.2 (0.9-2); Albumin Level 3.3 gm/dl (3.4-5.0); BUN Creatinine Ratio 10.8 (10-20); Bilirubin,Total 0.4 mg/dl (0.2-1.0); Calcium 8.5 mg/dl (8.5-10.1); Creatinine Clr Calc Pharmacy 73.2 ml/min; Est GFR (African American) 92.5 ml/min; Est GFR (Non-African American) 79.8 ml/min; Globulin 2.7 gm/dl (2.5-4.0); Potassium 3.6 mmol/L (3.5-5.1)
[2022-02-26] MEDS ORDERED: ATENOLOL 25 MG TABLET PO SCH (09:00)
[2022-02-26] MEDS: MONTELUKAST SODIUM 10 MG TABLET PO SCH (09:49)
[2022-02-26] MEDS ORDERED: amLODIPine BESYLATE 5 MG TAB PO ONE (10:51)
--- NOTE | 2022-02-26 17:41 | Gastroenterology Progress Note ---
Date of Service February 26, 2022 Assessment & Plan (1) Acute GI bleeding: Plan: Likely diverticular--stopped for now. OK for DC anemia--stable. 30 mm AC polyp--serrated---Pt states she would like this removed so will order outpt EMR at [facility]. IBam MD have spent 10 minutes of discrete time performing the activities of this visit which include but are not limited to review of the medical record, obtaining a history, physical exam, and entering information in the electronic record. Admission and Anticipated Discharge Date Admission Date: February 23, 2022 Subjective CC f/u GI bleeding HPI Hgb stable this am and no further bleeding. DC has been ordered. Physical Exam Gastrointestinal (Abdomen): normal bowel sounds, soft, nontender, no hepatosplenomegaly Results & Data ([facility]) Vital Signs (Past 12 Hours) Vital Signs Temp Pulse Pulse Pulse Resp BP BP 02/26/22 17:06 36.9 C 61 77 20 173/77 H 173/83 H 02/26/22 11:07 36.9 C 77 20 173/83 H 02/26/22 08:00 79 02/26/22 07:39 36.6 C 72 18 180/79 H Pulse Ox 02/26/22 17:06 96 02/26/22 11:07 96 02/26/22 08:00 02/26/22 07:39 97
[2022-02-27] MEDS ORDERED: amLODIPine BESYLATE 5 MG TAB PO SCH (09:00)
--- NOTE | 2022-02-28 17:36 | Discharge Summary ---
Date of Service February 26, 2022 Admission HPI Per Admitting Provider This is a pleasant 76 yo female who was recently hospitalized for lower GI bleed and discharged on 02/21/22. Patient's daughter is at bedside and explains how toma Thompson is very active. 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 However, since discharge, she has noticed that she has been fatigued, gets dizzy when she stands up and is having difficulty ambulating to the bathroom. Her daughter states her BP has been low when she stands. She noted systolic BP in the 80s. Patient last night has had 3 epsidoes of hematoquezia with bright red blood in her toilet with clots. Given her symptoms and these 3 episodes of bleeding, hospitalist service was consulted. Principal Diagnosis LGI bleed Discharge Exam General: awake, alert, no apparent distress, with pallor Head: Normocephalic, atraumatic ENT: PERRL, EOMI, no pharyngeal exudate, mucous membranes moist Chest: Clear to auscultation, on room air, no adventitious breath sounds Cardiac: Regular rate and rhythm, no murmur, no JVD, normal peripheral pulses, good capillary refill Abdominal: NABS x 4 quadrants, soft, nontender to palpation, no rebound, guarding or tenderness Extremities: Normal inspection, no peripheral edema or erythema, calfs nontender to palpation Psych: Normal mood and affect Neuro: AAO x 3, strength intact bilaterally and rated 5/5, no motor deficits, speech is clear, no peripheral sensory deficits Skin: no rash or erythema Discharge Data Allergies Allergy/AdvReac Type Severity Reaction Status Date / Time thimerosal Allergy Severe Hives Verified 02/19/22 11:16 Consultations 02/23/22 11:00 ED Decision to Admit Stat 02/23/22 11:31 Consult Gastroenterology Routine Hospital Course (1) LGI bleed: Likely acute diverticular bleed. Patient had a negative NM RBC scan. tplerated clear liquid diet, and diet was slowly advanced. Patient required 1 unit of PRBC during hospital stay. On admission. Patient was having symptoms of fatigue. Likely symptomatic anemia, which resolved after transfusion. Advanced diet to low fiber. will discharge on 3 days a week of iron supplements MWF. Will start on Sunday (2) Blood in stool: as stated above. Most likely diverticular bleed. No new epiosdes overnight (02/25) (3) Anemia: Patient appears to be having symptomatic anemia. received 1 unit of PRBC (4) Hypothyroidism: resume home meds (5) Hypertension: due to orthostasis, will decrease atenolol to 25 mg po daily. add amlodipine DVT: SCDs Total Time Total Time Spent Total Time Spent (In Minutes): 45 Discharge Plan Discharge Items Patient Disposition: Home - Self-Care Reason For Visit: LOWER DIVERTICULAR BLEEDING Discharge Diagnosis: Lower diverticular bleeding Activity: Resume your previous activity Non-emergency contact: Primary Care Provider Call non-emergency contact if: you have any medication questions Follow-up/Referrals: Serjio Mills [Primary Care Provider] - Diet: Low Fiber Addtl Attending Provider Instructions: Recommend a close followup with PCP within 1-2 weeks. Recommend followup with Gastroenterology ([facility]) in 2-4 weeks. Please start Iron pills on Sunday. Pending Studies at Discharge: No Stand-Alone Forms: [facility] [employer], Smoking Cessation Medications and DC Order Prescriptions: New amlodipine 2.5 mg tablet 2.5 mg PO .AM Qty: 30 RF: 0 ferrous sulfate 325 mg (65 mg iron) tablet 325 mg PO .MWF Qty: 20 RF: 0 Continued cetirizine [Zyrtec] 10 mg Tablet 5 mg PO QPM RF: 0 levothyroxine 50 mcg tablet 50 mcg PO QAM RF: 0 montelukast 10 mg tablet 10 mg PO QAM RF: 0 olmesartan 20 mg tablet 20 mg PO QPM RF: 0 Changed atenolol 25 mg tablet 25 mg PO DAILY Qty: 30 RF: 0 Discharge Orders: Discharge Order (Routine); Ordered 02/26/22 Ordered By: Garcia Suárez/Other Patient Handouts: Low-Fiber Diet Admission Data Admit Date/Time: 02/23/22 22:21 Attending Provider: Garcia Muniz Admit Provider: Garcia Muniz Primary Care Provider: Serjio Mills Other Providers: Bam Saleh Other Interventions: Discharge Summary Assessment (RN) Last Done: 02/26/22 17:06 Coding Level of Care Code D/C DAY MANAGEMENT >30 MINS Diagnoses LGI bleed K92.2 Blood in stool K92.1 Anemia D62 Anemia type: other cause Other causes of anemia: acute posthemorrhagic Hypothyroidism E03.9 Hypertension I10 Hypertension type: unspecified
== END 2022-02-26 18:30 | disposition home or self-care (01) | DRG 379 ==
LOC: EDINP 07:50 → ED 07:50 → EDINP 15:16 → 2N 16:17
DX: D64.9 Anemia, unspecified; I10 Essential (primary) hypertension; Z88.8 Allergy status to other drugs, medicaments and biological substances; K57.91 Diverticulosis of intestine, part unspecified, without perforation or abscess with bleeding; K92.1 Melena; E03.9 Hypothyroidism, unspecified; J33.9 Nasal polyp, unspecified